=== PATIENT | female | born 1985 | race Two or more races ===

== ENCOUNTER 2017-04-11 11:08 | Emergency (ER) | payer MEDICAID ==
--- NOTE | 2017-04-11 13:09 | ED Physician Documentation ---
PD HPI URI - Stated complaint Stated Complaint: COLD SX - Chief complaint Chief Complaint: General - History obtained from History obtained from: Patient - History of Present Illness Timing - onset: How many weeks ago (over a week, with worsening cough and asthma now the past 2 days.) Timing details: Gradual onset, Still present. No: Abrupt onset Associated symptoms: Chills, Nasal congestion, Productive cough, Dyspnea. No: Hemoptysis, NVD Contributing factors: COPD / asthma, Other (lives in her car so poor air quality ). No: Sick contact, Travel, Immunocompromised Similar symptoms before: Diagnosis (bronchitis and asthma exac in the past, not recent.) Review of Systems Constitutional: reports: Chills, Myalgias. denies: Fever Nose: reports: Rhinorrhea / runny nose, Congestion Throat: denies: Sore throat Cardiac: reports: Chest pain / pressure. denies: Palpitations Respiratory: reports: Dyspnea, Cough, Wheezing GI: denies: Nausea, Vomiting, Diarrhea Skin: denies: Rash, Lesions PD PAST MEDICAL HISTORY - Past Medical History Past Medical History: Yes Respiratory: Asthma - Past Surgical History Past Surgical History: No - Present Medications Home Medications: Ambulatory Orders Medication Instructions Recorded Confirmed Albuterol Sulf [Ventolin Hfa 1 - 2 puffs INH Q4HR PRN #1 inhaler 04/11/17 Inhaler] Benzonatate [Tessalon] 100 mg PO TID PRN #25 capsule 04/11/17 Dexamethasone [Decadron] 4 mg PO DAILY #5 tablet 04/11/17 Doxycycline Monohydrate 100 mg PO BID #14 tablet 04/11/17 Mometasone Furoate [Asmanex] 1 spray IH DAILY #1 [email or web address] 04/11/17 Mupirocin 1 applic TP TID #15 oint...g. 04/11/17 - Allergies Allergies/Adverse Reactions: Allergies Allergy/AdvReac Type Severity Reaction Status Date / Time No Known Drug Allergies Allergy Verified 04/11/17 11:18 - Living Situation Living Situation: reports: Alone Living Arrangement: reports: Homeless (lives in her car) - Social History Does the pt smoke?: No Smoking Status: Never smoker Does the pt drink ETOH?: No Does the pt have substance abuse?: No - Immunizations Immunizations are current?: Yes PD ED PE NORMAL - Vitals Vital signs reviewed: Yes - General General: Alert and oriented X 3, No acute distress, Well developed/nourished - HEENT HEENT: Ears normal, Pharynx benign - Neck Neck: Supple, no meningeal sign, No adenopathy - Cardiac Cardiac: RRR, No murmur - Respiratory Respiratory: No: Clear bilaterally (no coarse sounds but with some wheezing noted scattered. She declines neb treatment here. ) - Abdomen Abdomen: Soft, Non tender - Derm Derm: Normal color, Warm and dry - Extremities Extremities: Other (left hand with small 2 cm lac just full thickness, with small scabbing, no redness nor drainage. ) Results - Vitals Vitals: Oxygen O2 Source Room air PD MEDICAL DECISION MAKING - ED course Complexity details: considered differential (main issue is URI symptoms and asthma. Secondary has small hand lac that she asks to have cleaned and dressed. It does not appear infected. Has had extended URI symptoms with now purulent cough and history of asthma, so concern for bronchitis at this point.) Departure - Departure Disposition: 01 Home, Self Care Clinical Impression: Hand laceration Qualifiers: Encounter type: initial encounter Foreign body presence: without foreign body Laterality: left Qualified Code(s): S61.412A - Laceration without foreign body of left hand, initial encounter Upper respiratory infection Qualifiers: URI type: unspecified URI Qualified Code(s): J06.9 - Acute upper respiratory infection, unspecified Asthma exacerbation Qualifiers: Asthma severity: mild Asthma persistence: intermittent Qualified Code(s): J45.21 - Mild intermittent asthma with (acute) exacerbation Record reviewed to determine appropriate education?: Yes Instructions: ED Upper Resp Infec Abx Tx, ED Laceration Hand Prescriptions: Albuterol Sulf [Ventolin Hfa Inhaler] 1 - 2 puffs INH Q4HR PRN #1 inhaler PRN Reason: Shortness Of Air/Wheezing Benzonatate [Tessalon] 100 mg PO TID PRN #25 capsule PRN Reason: Cough Dexamethasone [Decadron] 4 mg PO DAILY #5 tablet Doxycycline Monohydrate 100 mg PO BID #14 tablet Mometasone Furoate [Asmanex] 1 spray IH DAILY #1 [email or web address] Mupirocin 1 applic TP TID #15 oint...g. Comments: Drink lots of fluids. Continue your albuterol inhaler 2 puffs 4 times a day for the next 7-10 days then as needed. Continue the steroid inhaler as well. Also add oral steroids daily for the next 5 days. Use Tessalon if needed for cough. This sounds like there may be some sinus infection as well as bronchial. This often is viral but given your history of asthma in the duration of the symptoms, we will treated with antibiotics as well with doxycycline twice daily for a week. Recheck if not improving over the next few days. Tylenol or ibuprofen if needed for fevers and aches. Discharge Date/Time: 04/11/17 13:46
[2017-04-11] MEDS ORDERED: DEXAMETHASONE 10 MG/ML VIAL PO STA (13:17)
[2017-04-11] MEDS ORDERED: MUPIROCIN 2% OINT 1 GM TOP STA (13:17)
[2017-04-11] MEDS ORDERED: DOXYCYCLINE 100 MG TABLET PO STA (13:17)
[2017-04-11] MEDS ORDERED: CETIRIZINE 10 MG TABLET PO STA (13:17)
[2017-04-11] MEDS ORDERED: CHERRY SYRUP 10 ML UDC PO ONE (13:29)
[2017-04-11 13:47] VITALS: BP 134/82
== END 2017-04-11 13:46 | disposition home or self-care (01) ==
LOC: ED 11:08
DX: J06.9 Acute upper respiratory infection, unspecified (principal); J45.21 Mild intermittent asthma with (acute) exacerbation; S61.412A Laceration without foreign body of left hand, initial encounter; X58.XXXA Exposure to other specified factors, initial encounter; Z59.0 Homelessness
CPT/HCPCS: 99283; A9270

== ENCOUNTER 2017-08-26 09:58 | Emergency (ER) | payer MEDICAID ==
[2017-08-26] MEDS ORDERED: oxyCODONE 5 MG TABLET PO STA (11:07)
[2017-08-26] MEDS ORDERED: LIDOCAINE 1%-EPI 1:100000 20 ML MDV SUBQ STA (11:07)
--- NOTE | 2017-08-26 11:09 | ED Physician Documentation ---
History of Present Illness - Stated complaint Stated Complaint: HOT FLASHES - Chief complaint Chief Complaint: Wound - Additonal information Additional information: hx from pt 32 f denies preg homeless meth IVDA to ER with hot flashes and numerous arm abscesses denies HIV no DM states uses her own clean needles Review of Systems Constitutional: reports: Fever : denies: Now EGA Skin: reports: Other (abscesses) PD PAST MEDICAL HISTORY - Past Medical History Respiratory: Asthma - Past Surgical History Past Surgical History: No - Present Medications Home Medications: Ambulatory Orders Medication Instructions Recorded Confirmed Albuterol Sulf [Ventolin Hfa 1 - 2 puffs INH Q4HR PRN #1 inhaler 04/11/17 Inhaler] Cephalexin [Keflex] 500 mg PO Q6H #28 capsule 08/26/17 Mometasone Furoate [Asmanex] 2 spray IH DAILY 08/26/17 08/26/17 Sulfamethox/Trimeth 800/160 1 each PO BID #14 tablet 08/26/17 [Bactrim Ds 800/160] - Allergies Allergies/Adverse Reactions: Allergies Allergy/AdvReac Type Severity Reaction Status Date / Time No Known Drug Allergies Allergy Verified 08/26/17 11:19 - Social History Does the pt smoke?: No Smoking Status: Never smoker Does the pt drink ETOH?: No Does the pt have substance abuse?: No - Immunizations Immunizations are current?: Yes PD ED PE NORMAL - Vitals Vital signs reviewed: Yes - Cardiac Cardiac: RRR, No murmur - Respiratory Respiratory: No respiratory distress - Extremities Extremities: Other (eschar L AC with large area firm hot erythematous induration to upper third of the ant later FA, MSV intact, several smaller abscesses to R AC and FA, also MSV intact) - Neuro Neuro: Alert and oriented X 3 Results - Vitals Vitals: Vital Signs - 24 hr 08/26/17 08/26/17 08/26/17 10:23 12:49 14:29 Temperature 36.8 C 36.7 C Heart Rate 94 66 68 Respiratory 18 16 18 Rate Blood Pressure 128/74 122/61 123/62 O2 Saturation 100 98 98 Oxygen O2 Source Room air - Labs Labs: Microbiology 08/26/17 13:30 Wound Culture - Preliminary Arm - Right Laboratory Tests 08/26/17 08/26/17 11:40 11:45 WBC 8.4 RBC 4.23 Hgb 12.5 Hct 37.7 MCV 89.1 MCH 29.5 MCHC 33.1 RDW 14.8 Plt Count 311 MPV 7.7 L Neut # (Auto) 5.4 Lymph # (Auto) 2.0 Harlan # (Auto) 0.8 Eos # (Auto) 0.1 Baso # (Auto) 0.1 Absolute Nucleated RBC 0.00 Nucleated RBC % 0.0 Sodium 135 Potassium 3.2 L Chloride 103 Carbon Dioxide 25 Anion Gap 7.0 BUN 8 Creatinine 0.6 Estimated GFR (MDRD) 117 Glucose 109 H Calcium 8.4 L PD MEDICAL DECISION MAKING - ED course ED course: busy ED today with numerous procedures to do - pt had been waiting patiently - abscesses drained by other EMP on duty Dr Moya under local anesthesia and oral analegesia - see his note - R arm culture taken not needing packing, L arm larger and packed - Sepsis Event Vital Signs: Vital Signs - 24 hr 08/26/17 08/26/17 08/26/17 10:23 12:49 14:29 Temperature 36.8 C 36.7 C Heart Rate 94 66 68 Respiratory 18 16 18 Rate Blood Pressure 128/74 122/61 123/62 O2 Saturation 100 98 98 Oxygen O2 Source Room air Departure - Departure Disposition: 01 Home, Self Care Clinical Impression: Abscess Condition: Good Instructions: ED Abscess IandD Follow-Up: [facility] [Provider Group] (call to establish care for future needs) Prescriptions: Cephalexin [Keflex] 500 mg PO Q6H #28 capsule Sulfamethox/Trimeth 800/160 [Bactrim Ds 800/160] 1 each PO BID #14 tablet Comments: You have numerous abscesses on both arms very likely due to your drug use Ideally stop using meth all together - we gave you a book of resources that provide assistance with drug addiction - this booklet also has information for local shelters such as the [facility] If you cannot stop using, you need new clean needles. Given the number of infected sites you have right now, you may even have a blood stream infection - we have blood cultures as well as wound cultures pending - we will call you at the number your provided when you checked in - please be certain that number is a working functional phone number is case we need to reach you with critical results I have prescribed antibiotics to cover all different kinds of possible bacteria - take as directed - and eat some yogurt every daily to prevent diarrhea from the antibiotics You need to come back to the ED Tuesday to have the packing changed and the wounds checked Return sooner if worse. Discharge Date/Time: 08/26/17 14:32
[2017-08-26] MEDS ORDERED: LIDOCAINE 1%-EPI 1:100000 30 ML MDV ONE (11:33)
[2017-08-26 12:01] LABS: BASOPHILS # (AUTO) 0.1 10^3/uL (0.0-0.1); EOSINOPHILS # (AUTO) 0.1 10^3/uL (0.0-0.7); EOSINOPHILS % (AUTO) 0.8 %; HGB - HEMOGLOBIN 12.5 g/dL (12.0-16.0); LYMPHOCYTES % (AUTO) 24.3 %; MEAN CORPUSCULAR HEMOGLOBIN 29.5 pg (27.0-31.0); MEAN CORPUSCULAR HGB CONC 33.1 g/dL (32.0-36.0); MEAN CORPUSCULAR VOLUME 89.1 fL (81.0-99.0); MEAN PLATELET VOLUME 7.7 fL (7.9-10.8); MONOCYTES # (AUTO) 0.8 10^3/uL (0.0-1.0); MONOCYTES % (AUTO) 9.3 %; NEUTROPHILS # (AUTO) 5.4 10^3/uL (1.5-6.6); NEUTROPHILS % (AUTO) 64.6 %; PLT - PLATELET COUNT 311 10^3/uL (130-450); RED BLOOD COUNT 4.23 10^6/uL (4.20-5.40); RED CELL DISTRIBUTION WIDTH 14.8 % (12.0-15.0); WHITE BLOOD COUNT 8.4 x10^3/uL (4.8-10.8)
[2017-08-26 12:07] LABS: CALCIUM 8.4 mg/dL (8.5-10.3); CREATININE 0.6 mg/dL (0.4-1.0)
[2017-08-26 14:32] VITALS: BP 123/62
--- NOTE | 2017-08-31 18:01 | ED Physician Documentation ---
ED Addendum - Addendum Addendum: 08/31/17 17:59 Dr Zamora asked me to do the I/Ds on this patient. Procedure 1: Right forearm. 2cm abcess was prepped and infiltrated with lidocaine and incised. Culture obtained. Purulent drainage sent for cx. Not packed- too small. Procedure 2: Left forearm, 3cm abcess was prepped and infiltrated with lidocaine and incised. No cx obtained. Deloculated and packed.
== END 2017-08-26 14:32 | disposition home or self-care (01) ==
LOC: ED 09:58
DX: L02.414 Cutaneous abscess of left upper limb (principal); L02.413 Cutaneous abscess of right upper limb; F15.10 Other stimulant abuse, uncomplicated; Z59.0 Homelessness
CPT/HCPCS: 36415; 80048; 85025; 87040; 87070; 87205; 99283; A9270; 10061

== ENCOUNTER 2017-08-29 13:59 | Emergency (ER) | payer MEDICAID ==
[2017-08-29] MEDS ORDERED: SULFAMETH/TRIMETH DS 800/160 MG TABLET PO STA (14:50)
[2017-08-29] MEDS ORDERED: cephALEXin 250 MG CAPSULE PO STA (14:50)
--- NOTE | 2017-08-29 15:00 | ED Physician Documentation ---
History of Present Illness - Stated complaint Stated Complaint: unable to fill meds - Chief complaint Chief Complaint: General - History obtained from History obtained from: Patient - History of Present Illness Timing: Today - Additonal information Additional information: 32-year-old female with history of IV drug abuse has had abscesses on her arm lanced 3 days ago here in the emergency department. She has been unable to fill her prescription for her antibiotics and her asthma medication and she is come to the emergency department. She has not had progression of her symptoms on her wounds. She does state that she is now homeless and when she tried to get her prescription filled she was told her insurance was not good. She is come to the emergency department today frustrated unable to get her medications. Review of Systems Constitutional: denies: Fever Eyes: denies: Decreased vision Nose: denies: Congestion Respiratory: denies: Cough GI: denies: Vomiting Skin: reports: Lesions Musculoskeletal: reports: Extremity pain. denies: Neck pain, Back pain Neurologic: denies: Generalized weakness, Focal weakness, Numbness PD PAST MEDICAL HISTORY - Past Medical History Past Medical History: Yes Respiratory: Asthma - Past Surgical History Past Surgical History: No - Present Medications Home Medications: Ambulatory Orders Medication Instructions Recorded Confirmed Albuterol Sulf [Ventolin Hfa 1 - 2 puffs INH Q4HR PRN #1 inhaler 04/11/17 Inhaler] Cephalexin [Keflex] 500 mg PO Q6H #28 capsule 08/26/17 Mometasone Furoate [Asmanex] 2 spray IH DAILY 08/26/17 08/26/17 Sulfamethox/Trimeth 800/160 1 each PO BID #14 tablet 08/26/17 [Bactrim Ds 800/160] Albuterol Sulf [Ventolin Hfa 1 - 2 puffs INH Q4HR PRN #1 inhaler 08/29/17 Inhaler] Cephalexin [Keflex] 500 mg PO Q6HR #28 capsule 08/29/17 Sulfamethoxazole/Trimethoprim 1 each PO BID #14 tablet 08/29/17 [Sulfamethoxazole-Tmp Ds Tablet] - Allergies Allergies/Adverse Reactions: Allergies Allergy/AdvReac Type Severity Reaction Status Date / Time No Known Drug Allergies Allergy Verified 08/29/17 14:06 - Social History Does the pt smoke?: No Smoking Status: Never smoker Does the pt drink ETOH?: No Does the pt have substance abuse?: No - Immunizations Immunizations are current?: Yes PD ED PE NORMAL - Vitals Vital signs reviewed: Yes (hypertensive ) - General General: Alert and oriented X 3, No acute distress, Well developed/nourished - HEENT HEENT: Atraumatic, PERRL, EOMI - Respiratory Respiratory: No respiratory distress - Derm Derm: Normal color, Warm and dry, No rash - Extremities Extremities: No deformity, No edema, Other (over the antecubita on the left is a wound that is draining pus through a 3mm hole and there is no significant surounding erythema. There is a second area that has been lanced and has no current drainage but does have firm mass that is tender. This is on the forearm on the left. There are 2 other areas on the right forearm that appear to be healing without current signs of infection ) - Neuro Neuro: No motor deficit, No sensory deficit Eye Opening: Spontaneous Motor: Obeys Commands Verbal: Oriented GCS Score: 15 - Psych Psych: Normal mood, Normal affect Results - Vitals Vitals: Vital Signs - 24 hr 08/29/17 08/29/17 14:02 16:04 Temperature 36.5 C 36.6 C Heart Rate 87 97 Respiratory 18 16 Rate Blood Pressure 150/83 H 142/85 H O2 Saturation 100 99 Oxygen O2 Source Room air PD MEDICAL DECISION MAKING - ED course Complexity details: reviewed results, re-evaluated patient, considered differential, d/w patient, d/w family ED course: 32 y/o female with abcesses to the arms is not able to procure her antibiotic script. administrative services officer are consulted for help. - Sepsis Event Vital Signs: Vital Signs - 24 hr 08/29/17 08/29/17 14:02 16:04 Temperature 36.5 C 36.6 C Heart Rate 87 97 Respiratory 18 16 Rate Blood Pressure 150/83 H 142/85 H O2 Saturation 100 99 Oxygen O2 Source Room air Departure - Departure Disposition: 01 Home, Self Care Clinical Impression: Abscess Condition: Stable Instructions: ED Staph Infec Abx Tx Only Follow-Up: [facility] [Provider Group] Prescriptions: Albuterol Sulf [Ventolin Hfa Inhaler] 1 - 2 puffs INH Q4HR PRN #1 inhaler PRN Reason: Shortness Of Air/Wheezing Cephalexin [Keflex] 500 mg PO Q6HR #28 capsule Sulfamethoxazole/Trimethoprim [Sulfamethoxazole-Tmp Ds Tablet] 1 each PO BID # 14 tablet Comments: Fill the scripts for the antibiotics and the inhaler and follow up with Luis Hood as needed.
[2017-08-29 16:06] VITALS: BP 142/85
== END 2017-08-29 16:13 | disposition home or self-care (01) ==
LOC: ED 13:59
DX: L02.414 Cutaneous abscess of left upper limb (principal); J45.909 Unspecified asthma, uncomplicated
CPT/HCPCS: 99283; A9270

== ENCOUNTER 2017-10-17 12:16 | Emergency (ER) | payer MEDICAID ==
[2017-10-17 12:27] VITALS: BP 109/62
--- NOTE | 2017-10-17 14:55 | ED Physician Documentation ---
History of Present Illness - Stated complaint Stated Complaint: R ARM PX - Chief complaint Chief Complaint: General - History obtained from History obtained from: Patient - History of Present Illness Timing: How many days ago (3) Pain level max: 8 Pain level now: 8 Quality: aching, pain Improved by: rest Worsened by: movement, palpation - Additonal information Additional information: States that she was injecting meth in her R AC 2-3 days ago and states now has redness, swelling and pain to the area. States this has happened before. No fevers. No vomiting. No back pain. no headache. not . Review of Systems Constitutional: denies: Fever, Chills Respiratory: denies: Cough GI: denies: Nausea, Vomiting, Diarrhea Skin: denies: Rash Musculoskeletal: denies: Neck pain, Back pain Neurologic: denies: Headache PD PAST MEDICAL HISTORY - Past Medical History Past Medical History: Yes Respiratory: Asthma - Past Surgical History Past Surgical History: No - Present Medications Home Medications: Ambulatory Orders Medication Instructions Recorded Confirmed Mometasone Furoate [Asmanex] 2 spray IH DAILY 08/26/17 08/26/17 Albuterol Sulf [Ventolin Hfa 1 - 2 puffs INH Q4HR PRN #1 inhaler 08/29/17 Inhaler] Cephalexin [Keflex] 500 mg PO Q6HR #28 capsule 08/29/17 Cephalexin [Keflex] 500 mg PO Q6H #28 capsule 10/17/17 Sulfamethox/Trimeth 800/160 1 each PO BID #14 tablet 10/17/17 [Bactrim Ds 800/160] - Allergies Allergies/Adverse Reactions: Allergies Allergy/AdvReac Type Severity Reaction Status Date / Time No Known Drug Allergies Allergy Verified 10/17/17 12:26 - Social History Does the pt smoke?: No Smoking Status: Never smoker Does the pt drink ETOH?: No Does the pt have substance abuse?: No - Immunizations Immunizations are current?: Yes PD ED PE NORMAL - Vitals Vital signs reviewed: Yes - General General: Alert and oriented X 3, No acute distress - HEENT HEENT: Moist mucous membranes - Neck Neck: Supple, no meningeal sign - Cardiac Cardiac: RRR - Respiratory Respiratory: No respiratory distress, Clear bilaterally - Derm Derm: Warm and dry - Extremities Extremities: Other (R arm - Mild swelling and erythema to the anterior right AC. No fluctuance. No drainage. Neurovascularly intact. Otherwise normal exam. Bedside ultrasound reveals no drainable abscess at this time) - Neuro Neuro: Alert and oriented X 3 - Psych Psych: Normal mood, Normal affect Results - Vitals Vitals: Vital Signs - 24 hr 10/17/17 12:22 Temperature 36.8 C Heart Rate 86 Respiratory 18 Rate Blood Pressure 109/62 O2 Saturation 99 Oxygen O2 Source Room air PD MEDICAL DECISION MAKING - ED course Complexity details: considered differential, d/w patient ED course: Patient is a 32-year-old female with what appears to be cellulitis of the right AC fossa after injecting methamphetamine. No drainable abscess on ultrasound. No fluctuance clinically. Will place on antibiotics and follow-up closely with her doctor. Was given Rocephin and Bactrim here. Patient counseled regarding signs and symptoms for which I believe and urgent re-evaluation would be necessary. Patient with good understanding of and agreement to plan and is comfortable going home at this time This document was made in part using voice recognition software. While efforts are made to proofread this document, sound alike and grammatical errors may occur. - Sepsis Event Vital Signs: Vital Signs - 24 hr 10/17/17 12:22 Temperature 36.8 C Heart Rate 86 Respiratory 18 Rate Blood Pressure 109/62 O2 Saturation 99 Oxygen O2 Source Room air Departure - Departure Disposition: 01 Home, Self Care Clinical Impression: Cellulitis Qualifiers: Site of cellulitis: extremity Site of cellulitis of extremity: upper extremity Laterality: right Qualified Code(s): L03.113 - Cellulitis of right upper limb Condition: Good Instructions: ED Infec Skin Cellulitis Follow-Up: your,doctor in 3 days for wound check [Other] Prescriptions: Cephalexin [Keflex] 500 mg PO Q6H #28 capsule Sulfamethox/Trimeth 800/160 [Bactrim Ds 800/160] 1 each PO BID #14 tablet Comments: Take all antibiotics until gone. Return if you worsen. Follow-up with your doctor in 3 days for a wound check. Return especially for increasing redness, swelling or fevers. Discharge Date/Time: 10/17/17 15:52
[2017-10-17] MEDS ORDERED: LIDOCAINE 1% 2 ML VIAL SUBQ ONE (15:39)
[2017-10-17] MEDS ORDERED: SULFAMETH/TRIMETH DS 800/160 MG TABLET PO STA (15:39)
[2017-10-17] MEDS ORDERED: cefTRIAXone 1 GM VIAL IM STA (15:39)
== END 2017-10-17 15:52 | disposition home or self-care (01) ==
LOC: ED 12:16
DX: L03.113 Cellulitis of right upper limb (principal)
CPT/HCPCS: 96372; 99283; A9270

== ENCOUNTER 2017-12-29 15:28 | Emergency (ER) | payer MEDICAID ==
[2017-12-29] MEDS ORDERED: HALOPERIDOL 5 MG/ML VIAL IVP STA (16:09)
[2017-12-29] MEDS ORDERED: IPRATROPIUM/ALBUTEROL 3 ML NEB INH STA (16:10)
--- NOTE | 2017-12-29 16:14 | ED Physician Documentation ---
History of Present Illness - Stated complaint Stated Complaint: FEVER/SOA/ABD PX - Chief complaint Chief Complaint: Abd Pain - History obtained from History obtained from: Patient - History of Present Illness Timing: Chronic Pain level max: 7 Pain level now: 7 Improved by: nothing Worsened by: nothing - Additonal information Additional information: Patient is a 32-year-old female who presents to the emergency department with abdominal pain. She states this is been ongoing for many years. Has been constant and is present every day all day long. She states that she has had multiple endoscopies, colonoscopies, CT scans and ultrasounds without any abnormalities found. She states that nobody knows what is wrong with her abdominal pain. She states it is getting worse. She uses marijuana multiple times daily and states that it makes her feel "sick". However she does continue her daily use. She also states that she has not been drinking much water lately and feels dehydrated. Is also out of her inhalers. Review of Systems Constitutional: denies: Fever, Chills Ears: denies: Ear pain Nose: denies: Rhinorrhea / runny nose, Congestion Throat: denies: Sore throat Cardiac: denies: Chest pain / pressure Respiratory: denies: Cough, Wheezing GI: reports: Abdominal Pain. denies: Nausea, Vomiting, Diarrhea, Hematemesis, Bloody / black stool : denies: Dysuria, Now EGA Skin: denies: Rash Musculoskeletal: denies: Neck pain, Back pain Neurologic: denies: Headache PD PAST MEDICAL HISTORY - Past Medical History Respiratory: Asthma - Past Surgical History Past Surgical History: Yes General: Cholecystectomy - Present Medications Home Medications: Ambulatory Orders Medication Instructions Recorded Confirmed Albuterol Sulf [Ventolin Hfa 1 - 2 puffs INH Q4HR PRN #1 inhaler 08/29/17 Inhaler] Albuterol Sulf [Ventolin Hfa 1 - 2 puffs INH Q4HR PRN #1 inhaler 12/29/17 Inhaler] Mometasone Furoate [Asmanex] 2 spray IH DAILY #1 aer.[email or web address] 12/29/17 - Allergies Allergies/Adverse Reactions: Allergies Allergy/AdvReac Type Severity Reaction Status Date / Time No Known Drug Allergies Allergy Verified 12/29/17 15:36 - Social History Does the pt smoke?: No Smoking Status: Never smoker Does the pt drink ETOH?: No Does the pt have substance abuse?: No - Immunizations Immunizations are current?: Yes - POLST Patient has POLST: No PD ED PE NORMAL - Vitals Vital signs reviewed: Yes - General General: Alert and oriented X 3, No acute distress - HEENT HEENT: Moist mucous membranes - Neck Neck: Supple, no meningeal sign - Cardiac Cardiac: RRR, Strong equal pulses - Respiratory Respiratory: No respiratory distress, Clear bilaterally - Abdomen Abdomen: Soft, Non tender, Non distended - Back Back: No spinal TTP - Derm Derm: Warm and dry - Neuro Neuro: Alert and oriented X 3 - Psych Psych: Normal mood, Normal affect Results - Vitals Vitals: Vital Signs - 24 hr 12/29/17 12/29/17 12/29/17 15:34 16:19 17:28 Temperature 36.5 C 36.6 C Heart Rate 116 H 106 H 75 Respiratory 20 20 20 Rate Blood Pressure 143/93 H 123/57 L O2 Saturation 99 99 Oxygen O2 Source Room air - Labs Labs: Laboratory Tests 12/29/17 12/29/17 16:44 16:44 WBC 8.1 RBC 4.42 Hgb 13.5 Hct 38.7 MCV 87.4 MCH 30.6 MCHC 35.0 RDW 14.6 Plt Count 309 MPV 7.0 L Neut # (Auto) 5.0 Lymph # (Auto) 2.6 Park # (Auto) 0.4 Eos # (Auto) 0.1 Baso # (Auto) 0.0 Absolute Nucleated RBC 0.01 Nucleated RBC % 0.1 Sodium 136 Potassium 3.4 L Chloride 105 Carbon Dioxide 23 Anion Gap 8.0 BUN 13 Creatinine 0.6 Estimated GFR (MDRD) 117 Glucose 143 H Calcium 8.8 Total Bilirubin 0.5 AST 20 ALT 40 Alkaline Phosphatase 51 Total Protein 7.5 Albumin 3.8 Globulin 3.7 Albumin/Globulin Ratio 1.0 Lipase 25 PD MEDICAL DECISION MAKING - ED course Complexity details: reviewed results, re-evaluated patient, considered differential, d/w patient ED course: Patient is a 32-year-old female with chronic abdominal pain. She does feel better after Haldol, possibly related to her marijuana use? Recommend that she stop this. She is well-appearing, nontoxic. Afebrile. Tolerating p.o. without difficulty. We will also refill her asthma medications. We will have her follow-up with her doctor for further care. Patient counseled regarding signs and symptoms for which I believe and urgent re-evaluation would be necessary. Patient with good understanding of and agreement to plan and is comfortable going home at this time This document was made in part using voice recognition software. While efforts are made to proofread this document, sound alike and grammatical errors may occur. Departure - Departure Disposition: Home, Self Care Clinical Impression: Abdominal pain Qualifiers: Abdominal location: generalized Qualified Code(s): R10.84 - Generalized abdominal pain Condition: Good Instructions: ED Abdominal Pain Unkn Cause Follow-Up: your,doctor in 1 week [Other] Prescriptions: Albuterol Sulf [Ventolin Hfa Inhaler] 1 - 2 puffs INH Q4HR PRN #1 inhaler PRN Reason: Shortness Of Air/Wheezing Mometasone Furoate [Asmanex] 2 spray IH DAILY #1 aer.[email or web address] Comments: Use your asthma medications as prescribed. Return if you worsen. Abdominal pain may be related to your marijuana use and you should stop using marijuana and see if this improves. Discharge Date/Time: 12/29/17 17:29
[2017-12-29 16:49] LABS: BASOPHILS % (AUTO) 0.4 %; EOSINOPHILS # (AUTO) 0.1 10^3/uL (0.0-0.7); EOSINOPHILS % (AUTO) 1.1 %; HGB - HEMOGLOBIN 13.5 g/dL (12.0-16.0); LYMPHOCYTES # (AUTO) 2.6 10^3/uL (1.5-3.5); LYMPHOCYTES % (AUTO) 32.8 %; MEAN CORPUSCULAR HEMOGLOBIN 30.6 pg (27.0-31.0); MEAN CORPUSCULAR VOLUME 87.4 fL (81.0-99.0); MONOCYTES # (AUTO) 0.4 10^3/uL (0.0-1.0); MONOCYTES % (AUTO) 4.4 %; NEUTROPHILS % (AUTO) 61.3 %; PLT - PLATELET COUNT 309 10^3/uL (130-450); RED BLOOD COUNT 4.42 10^6/uL (4.20-5.40); RED CELL DISTRIBUTION WIDTH 14.6 % (12.0-15.0); WHITE BLOOD COUNT 8.1 x10^3/uL (4.8-10.8)
[2017-12-29 17:02] LABS: ALBUMIN 3.8 g/dL (3.2-5.5); BILIRUBIN,TOTAL 0.5 mg/dL (0.2-1.0); CALCIUM 8.8 mg/dL (8.5-10.3); CREATININE 0.6 mg/dL (0.4-1.0); TOTAL PROTEIN 7.5 g/dL (6.7-8.2)
[2017-12-29 17:29] VITALS: BP 123/57
== END 2017-12-29 17:29 | disposition home or self-care (01) ==
LOC: ED 15:28
DX: R10.84 Generalized abdominal pain (principal); J45.909 Unspecified asthma, uncomplicated
CPT/HCPCS: 36415; 80053; 83690; 85025; 94640; 96374; 99283

== ENCOUNTER 2018-02-22 10:19 | Outpatient (CLI) | payer MEDICAID | END 2018-02-22 10:20 | disposition critical access hospital (66) | LOC: EMS 10:19 | PROVIDERS: ATTEND Surgery | DX: M54.5 Low back pain (principal); V13.4XXA Pedal cycle driver injured in collision with car, pick-up truck or van in traffic accident, initial encounter; Y93.55 Activity, bike riding; Y92.413 State road as the place of occurrence of the external cause | CPT/HCPCS: A0425; A0429; A0999 ==

== ENCOUNTER 2018-02-22 10:42 | Emergency (ER) | payer MEDICAID, OTHER ==
[2018-02-22] MEDS: IOVERSOL 320 100 ML VIAL IVP ONE (11:05)
[2018-02-22] MEDS: KETOROLAC 60 MG/2 ML VIAL IVP STA (11:39)
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
[2018-02-22] MEDS: HYDROmorphone 1 MG/ML CARPUJECT IVP STA (13:03)
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
[2018-02-22 17:08] VITALS: BP 143/83
== END 2018-02-22 15:55 | disposition home or self-care (01) ==
LOC: ED 10:42
DX: M79.10 Myalgia, unspecified site (principal); T14.8XXA Other injury of unspecified body region, initial encounter; V19.00XA Pedal cycle driver injured in collision with unspecified motor vehicles in nontraffic accident, initial encounter; F17.200 Nicotine dependence, unspecified, uncomplicated
CPT/HCPCS: 70450; 71260; 72125; 74177; 96374; 96375; 99283; 99285

== ENCOUNTER 2018-07-11 08:00 | Outpatient (CLI) | payer MEDICAID ==
[2018-07-11 18:29] LABS: BILIRUBIN,URINE NEGATIVE (NEGATIVE); GLUCOSE, URINE (UA) NEGATIVE (NEGATIVE); KETONES,URINE (UA) NEGATIVE (NEGATIVE); LEUKOCYTE ESTERASE, URINE NEGATIVE (NEGATIVE); NITRITE,URINE POSITIVE (NEGATIVE); OCCULT BLOOD,URINE NEGATIVE (NEGATIVE); PROTEIN,URINE NEGATIVE (NEGATIVE); UROBILINOGEN,URINE 0.2 (NORMAL) E.U./dL (NORMAL)
[2018-07-11 18:30] LABS: CLARITY,URINE HAZY (CLEAR)
[2018-07-11 18:44] LABS: BACTERIA,URINE Many /HPF (None Seen); RBC,URINE None Seen /HPF (0-5); SQUAMOUS EPITHELIAL CELL,UR MOD Squamous (<= Few)
== END 2018-07-11 23:59 | disposition home or self-care (01) ==
LOC: LAB.R 08:00
PROVIDERS: ATTEND Physician Assistant Medical
DX: R82.90 Unspecified abnormal findings in urine (principal)
CPT/HCPCS: 36415; 80053; 81001; 81003; 83036; 84443; 85025; 87086

== ENCOUNTER 2018-07-12 15:08 | Outpatient (CLI) | payer MEDICAID ==
[2018-07-12 18:54] LABS: BASOPHILS % (AUTO) 0.5 %; EOSINOPHILS # (AUTO) 0.1 10^3/uL (0.0-0.7); EOSINOPHILS % (AUTO) 1.6 %; HGB - HEMOGLOBIN 12.6 g/dL (12.0-16.0); LYMPHOCYTES # (AUTO) 2.3 10^3/uL (1.5-3.5); LYMPHOCYTES % (AUTO) 28.1 %; MEAN CORPUSCULAR HEMOGLOBIN 29.8 pg (27.0-31.0); MEAN CORPUSCULAR HGB CONC 33.3 g/dL (32.0-36.0); MEAN CORPUSCULAR VOLUME 89.4 fL (81.0-99.0); MEAN PLATELET VOLUME 7.9 fL (7.9-10.8); MONOCYTES # (AUTO) 0.6 10^3/uL (0.0-1.0); MONOCYTES % (AUTO) 6.7 %; NEUTROPHILS # (AUTO) 5.3 10^3/uL (1.5-6.6); NEUTROPHILS % (AUTO) 63.1 %; PLT - PLATELET COUNT 347 10^3/uL (130-450); RED BLOOD COUNT 4.22 10^6/uL (4.20-5.40); RED CELL DISTRIBUTION WIDTH 14.2 % (12.0-15.0); WHITE BLOOD COUNT 8.3 x10^3/uL (4.8-10.8)
[2018-07-12 19:11] LABS: ALBUMIN 3.3 g/dL (3.2-5.5); BILIRUBIN,TOTAL 0.5 mg/dL (0.2-1.0); CALCIUM 8.5 mg/dL (8.5-10.3); CREATININE 0.5 mg/dL (0.4-1.0); TOTAL PROTEIN 6.5 g/dL (6.7-8.2)
[2018-07-12 19:14] LABS: HB2 TOTAL 12.5 g/dL; HEMOGLOBIN A1C 0.47 g/dL; HEMOGLOBIN A1C % 5.6 % (4.6-6.2)
== END 2018-07-12 15:09 | disposition home or self-care (01) ==
LOC: LAB.WCP 15:08
PROVIDERS: ATTEND Physician Assistant Medical
DX: Z33.3 Pregnant state, gestational carrier (principal); O24.419 Gestational diabetes mellitus in pregnancy, unspecified control
CPT/HCPCS: 36415; 80053; 83036; 84443; 85025

== ENCOUNTER 2018-07-19 12:57 | Emergency (ER) | payer MEDICAID ==
[2018-07-19 13:37] LABS: BASOPHILS # (AUTO) 0.1 10^3/uL (0.0-0.1); BASOPHILS % (AUTO) 0.8 %; EOSINOPHILS # (AUTO) 0.2 10^3/uL (0.0-0.7); HGB - HEMOGLOBIN 12.1 g/dL (12.0-16.0); LYMPHOCYTES # (AUTO) 2.2 10^3/uL (1.5-3.5); LYMPHOCYTES % (AUTO) 29.6 %; MEAN CORPUSCULAR HEMOGLOBIN 29.7 pg (27.0-31.0); MEAN CORPUSCULAR HGB CONC 33.4 g/dL (32.0-36.0); MEAN CORPUSCULAR VOLUME 88.9 fL (81.0-99.0); MEAN PLATELET VOLUME 7.2 fL (7.9-10.8); MONOCYTES # (AUTO) 0.6 10^3/uL (0.0-1.0); MONOCYTES % (AUTO) 7.4 %; NEUTROPHILS # (AUTO) 4.6 10^3/uL (1.5-6.6); NEUTROPHILS % (AUTO) 60.2 %; PLT - PLATELET COUNT 337 10^3/uL (130-450); RED BLOOD COUNT 4.07 10^6/uL (4.20-5.40); RED CELL DISTRIBUTION WIDTH 14.7 % (12.0-15.0); WHITE BLOOD COUNT 7.6 x10^3/uL (4.8-10.8)
[2018-07-19 13:39] LABS: BILIRUBIN,URINE NEGATIVE (NEGATIVE); GLUCOSE, URINE (UA) NEGATIVE (NEGATIVE); KETONES,URINE (UA) NEGATIVE (NEGATIVE); LEUKOCYTE ESTERASE, URINE TRACE (NEGATIVE); NITRITE,URINE NEGATIVE (NEGATIVE); OCCULT BLOOD,URINE LARGE (NEGATIVE); PROTEIN,URINE 30 mg/dL (NEGATIVE); UROBILINOGEN,URINE 0.2 (NORMAL) E.U./dL (NORMAL)
[2018-07-19 13:41] LABS: CLARITY,URINE CLOUDY (CLEAR)
[2018-07-19 13:46] LABS: BACTERIA,URINE Few /HPF (None Seen); RBC,URINE TNTC /HPF (0-5); SQUAMOUS EPITHELIAL CELL,UR MOD Squamous (<= Few)
[2018-07-19 13:56] LABS: ALBUMIN 3.3 g/dL (3.2-5.5); BILIRUBIN,TOTAL 0.6 mg/dL (0.2-1.0); CALCIUM 8.6 mg/dL (8.5-10.3); CREATININE 0.5 mg/dL (0.4-1.0); TOTAL PROTEIN 6.7 g/dL (6.7-8.2)
--- NOTE | 2018-07-19 14:41 | ED Physician Documentation ---
PD HPI FEMALE - Stated complaint Stated Complaint: BLEEDING/7WKS - Chief complaint Chief Complaint: Abd Pain - History obtained from History obtained from: Patient - History of Present Illness Timing - onset: Yesterday Timing - duration: Days (1) Timing - details: Gradual onset Pain level max: 3 Pain level max: 3 Associated symptoms: Vaginal bleeding (clots). No: Fever Contributing factors: (7 weeks EGA) OB-RN NEONATAL History: G (3), P (2) Similar symptoms before: Has not had sx before Recently seen: Not recently seen Review of Systems Constitutional: denies: Fever, Chills Cardiac: denies: Chest pain / pressure Respiratory: denies: Cough GI: denies: Abdominal Pain, Nausea, Vomiting, Diarrhea : denies: Dysuria, Frequency, Hesitancy Skin: denies: Rash Musculoskeletal: denies: Neck pain, Back pain Neurologic: denies: Headache PD PAST MEDICAL HISTORY - Past Medical History Respiratory: Asthma - Past Surgical History Past Surgical History: Yes General: Cholecystectomy /RN NEONATAL: section - Present Medications Home Medications: Ambulatory Orders Medication Instructions Recorded Confirmed Albuterol Sulf [Ventolin Hfa 1 - 2 puffs INH Q4HR PRN #1 inhaler 08/29/17 Inhaler] Cyclobenzaprine [Flexeril] 10 mg PO TID PRN #20 tablet 02/22/18 Ibuprofen [Motrin] 800 mg PO Q8H PRN #30 tablet 02/22/18 - Allergies Allergies/Adverse Reactions: Allergies Allergy/AdvReac Type Severity Reaction Status Date / Time No Known Drug Allergies Allergy Verified 07/19/18 13:06 - Social History Does the pt smoke?: No Smoking Status: Current every day smoker Does the pt drink ETOH?: No Does the pt have substance abuse?: No - Immunizations Immunizations are current?: Yes - POLST Patient has POLST: No PD ED PE NORMAL - Vitals Vital signs reviewed: Yes - General General: Alert and oriented X 3, No acute distress, Well developed/nourished - HEENT HEENT: Moist mucous membranes - Neck Neck: Supple, no meningeal sign - Cardiac Cardiac: RRR - Respiratory Respiratory: No respiratory distress, Clear bilaterally - Abdomen Abdomen: Soft, Non tender, Non distended - Female Female : Pt declined - Derm Derm: Warm and dry - Extremities Extremities: No edema - Neuro Neuro: Alert and oriented X 3 - Psych Psych: Normal mood, Normal affect Results - Vitals Vitals: Vital Signs - 24 hr 07/19/18 07/19/18 07/19/18 13:03 14:53 15:22 Temperature 36.9 C Heart Rate 83 78 Respiratory 17 18 18 Rate Blood Pressure 169/138 H 128/85 H O2 Saturation 100 98 Oxygen O2 Source Room air - Labs Labs: Laboratory Tests 07/19/18 07/19/18 07/19/18 13:16 13:19 13:25 WBC 7.6 RBC 4.07 L Hgb 12.1 Hct 36.1 L MCV 88.9 MCH 29.7 MCHC 33.4 RDW 14.7 Plt Count 337 MPV 7.2 L Neut # (Auto) 4.6 Lymph # (Auto) 2.2 [place] # (Auto) 0.6 Eos # (Auto) 0.2 Baso # (Auto) 0.1 Absolute Nucleated RBC 0.00 Nucleated RBC % 0.0 Sodium Potassium Chloride Carbon Dioxide Anion Gap BUN Creatinine Estimated GFR (MDRD) Glucose Calcium Total Bilirubin AST ALT Alkaline Phosphatase Total Protein Albumin Globulin Albumin/Globulin Ratio Lipase HCG, Quant 9974.00 Urine Color LT RED Urine Clarity CLOUDY Urine pH 6.0 Ur Specific [place] 1.025 Urine Protein 30 H Urine Glucose (UA) NEGATIVE Urine Ketones NEGATIVE Urine Occult Blood LARGE H Urine Nitrite NEGATIVE Urine Bilirubin NEGATIVE Urine Urobilinogen 0.2 (NORMAL) Ur Leukocyte Esterase TRACE H Urine RBC TNTC H Urine WBC 4-5 Ur Squamous Epith Cells MOD Squamous H Urine Bacteria Few Ur Microscopic Review INDICATED Urine Culture Comments NOT INDICATED Blood Type 07/19/18 07/19/18 13:25 13:25 WBC RBC Hgb Hct MCV MCH MCHC RDW Plt Count MPV Neut # (Auto) Lymph # (Auto) [place] # (Auto) Eos # (Auto) Baso # (Auto) Absolute Nucleated RBC Nucleated RBC % Sodium 135 Potassium 3.7 Chloride 102 Carbon Dioxide 21 Anion Gap 12.0 BUN 10 Creatinine 0.5 Estimated GFR (MDRD) 145 Glucose 107 H Calcium 8.6 Total Bilirubin 0.6 AST 124 H ALT 278 H Alkaline Phosphatase 57 Total Protein 6.7 Albumin 3.3 Globulin 3.4 Albumin/Globulin Ratio 1.0 Lipase 23 HCG, Quant Urine Color Urine Clarity Urine pH Ur Specific [place] Urine Protein Urine Glucose (UA) Urine Ketones Urine Occult Blood Urine Nitrite Urine Bilirubin Urine Urobilinogen Ur Leukocyte Esterase Urine RBC Urine WBC Ur Squamous Epith Cells Urine Bacteria Ur Microscopic Review Urine Culture Comments Blood Type O POSITIVE - Rads (name of study) OB US Radiology: Prelim report reviewed, EMP read contemporaneously, See rad report (There is an irregular intrauterine gestational sac. There is a 0.5 cm linear echogenic focus within the gestational sac which could represent abnormal embryo. No heart tones are seen. Collective findings are suspicious for demise. No suspicious adnexal masses are seen. ) PD MEDICAL DECISION MAKING - ED course Complexity details: reviewed results, re-evaluated patient, considered differential, d/w patient, d/w family ED course: 32-year-old female with suspected intrauterine demise. We will have her follow-up with her doctor for a quantitative hCG in 3 days. She is 3 para 2. Having very little bleeding in the emergency department. Patient counseled regarding signs and symptoms for which I believe and urgent re- evaluation would be necessary. Patient with good understanding of and agreement to plan and is comfortable going home at this time This document was made in part using voice recognition software. While efforts are made to proofread this document, sound alike and grammatical errors may occur. Departure - Departure Disposition: 01 Home, Self Care Clinical Impression: Threatened affecting intrauterine Condition: Stable Instructions: ED Miscarriage Poss Follow-Up: your,doctor in 3 days for a repeat HCG. [Other] [facility] [Provider Group] Comments: You need to follow-up with your doctor in 3 days for a repeat hCG. Your ultrasound is suspicious for a miscarriage. Your hCG is 10,000 today. This needs to be repeated in 3 days to see if this is going up or down. Return if you experience heavier bleeding, chest pain or lightheadedness. Discharge Date/Time: 07/19/18 15:22
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
[2018-07-19 15:22] VITALS: BP 128/85
== END 2018-07-19 15:22 | disposition home or self-care (01) ==
LOC: ED 12:57
DX: O20.0 Threatened abortion (principal); Z3A.00 Weeks of gestation of pregnancy not specified; F17.200 Nicotine dependence, unspecified, uncomplicated
CPT/HCPCS: 36415; 76801; 76817; 80053; 81001; 81003; 83690; 84702; 85025; 86900; 86901; 87086; 99283; 99284

== ENCOUNTER 2018-07-21 15:30 | Outpatient (CLI) | payer MEDICAID | END 2018-07-21 15:31 | disposition home or self-care (01) | LOC: LAB 15:30 | PROVIDERS: ATTEND Obstetrics & Gynecology | DX: O03.9 Complete or unspecified spontaneous abortion without complication (principal) | CPT/HCPCS: 36415; 84702 ==

== ENCOUNTER 2018-07-22 16:58 | Outpatient (CLI) | payer MEDICAID | END 2018-07-22 16:59 | disposition critical access hospital (66) | LOC: EMS 16:58 | PROVIDERS: ATTEND Surgery | DX: O03.9 Complete or unspecified spontaneous abortion without complication (principal) ==

== ENCOUNTER 2018-07-22 17:19 | Day surgery (SDC) | payer MEDICAID ==
[2018-07-22] MEDS ORDERED: HYDROmorphone 1 MG/ML CARPUJECT IVP STA (17:33)
[2018-07-22] MEDS ORDERED: SODIUM CHLORIDE 0.9% 1,000 ML IV ONE ×3 (17:33→20:22)
[2018-07-22] MEDS ORDERED: KETOROLAC 30 MG/ML VIAL IVP STA (17:33)
--- NOTE | 2018-07-22 17:33 | ED Physician Documentation ---
History of Present Illness - Stated complaint Stated Complaint: FEM - Chief complaint Chief Complaint: Abd Pain - History obtained from History obtained from: Patient, EMS - History of Present Illness Timing: Today Pain level max: 8 Pain level now: 8 Improved by: nothing Worsened by: everything - Additonal information Additional information: 32-year-old female states that she had an intrauterine demise 3 days ago. Given misopristol, 600 mcg. Took it this morning and now has abdominal cramping and vaginal bleeding. States the bleeding is heavy enough that it prevents her from getting out of the shower because she is bleeding heavily. No fevers. She received fentanyl and Zofran with EMS. 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 - Present Medications Home Medications: Ambulatory Orders Medication Instructions Recorded Confirmed No Known Home Medications 07/22/18 07/22/18 miSOPROStol [Misoprostol] 100 mcg PO 07/22/18 - Allergies Allergies/Adverse Reactions: Allergies Allergy/AdvReac Type Severity Reaction Status Date / Time No Known Drug Allergies Allergy Verified 07/22/18 17:30 - Social History Does the pt smoke?: No Smoking Status: Current every day smoker Does the pt drink ETOH?: No Does the pt have substance abuse?: No - Immunizations Immunizations are current?: Yes - POLST Patient has POLST: No PD ED PE NORMAL - Vitals Vital signs reviewed: Yes - General General: Alert and oriented X 3, No acute distress, Well developed/nourished - HEENT HEENT: Moist mucous membranes - Neck Neck: Supple, no meningeal sign - Cardiac Cardiac: RRR - Respiratory Respiratory: No respiratory distress, Clear bilaterally - Abdomen Abdomen: Normal bowel sounds, Soft, Non distended, Other (TTP suprapubic) - Female Female : Entry Rep present (Tuyet HOGAN), Other (clots removed from vagina. Brisk dark blood from cervical os.) - Derm Derm: Warm and dry - Extremities Extremities: No edema - Neuro Neuro: Alert and oriented X 3 - Psych Psych: Normal mood, Normal affect Results - Vitals Vitals: Vital Signs - 24 hr 07/22/18 07/22/18 07/22/18 17:23 19:30 20:22 Temperature 36.3 C L Heart Rate 90 61 47 L Respiratory 12 8 L Rate Blood Pressure 141/97 H 119/61 74/48 L O2 Saturation 95 98 98 07/22/18 07/22/18 07/22/18 21:19 21:58 22:15 Temperature 36.7 C Heart Rate 82 70 73 Respiratory 18 20 19 Rate Blood Pressure 108/67 95/52 L 98/56 L O2 Saturation 100 96 99 Oxygen O2 Source Room air - Labs Labs: Laboratory Tests 07/22/18 07/22/18 07/22/18 17:33 17:50 18:00 WBC 11.1 H RBC 3.87 L Hgb 11.4 L Hct 34.9 L MCV 90.2 MCH 29.5 MCHC 32.7 RDW 14.8 Plt Count 314 MPV 7.3 L Neut # (Auto) 9.0 H Lymph # (Auto) 1.5 [place] # (Auto) 0.5 Eos # (Auto) 0.1 Baso # (Auto) 0.1 Absolute Nucleated RBC 0.00 Nucleated RBC % 0.0 Sodium 131 L Potassium 3.8 Chloride 103 Carbon Dioxide 20 L Anion Gap 8.0 BUN 9 Creatinine 0.4 Estimated GFR (MDRD) 187 Glucose 103 H Calcium 7.9 L Total Bilirubin 0.3 AST 79 H ALT 218 H Alkaline Phosphatase 60 Total Protein 6.9 Albumin 3.4 Globulin 3.5 Albumin/Globulin Ratio 1.0 Lipase 22 HCG, Quant Blood Type O POSITIVE Antibody Screen NEGATIVE 07/22/18 18:00 WBC RBC Hgb Hct MCV MCH MCHC RDW Plt Count MPV Neut # (Auto) Lymph # (Auto) [place] # (Auto) Eos # (Auto) Baso # (Auto) Absolute Nucleated RBC Nucleated RBC % Sodium Potassium Chloride Carbon Dioxide Anion Gap BUN Creatinine Estimated GFR (MDRD) Glucose Calcium Total Bilirubin AST ALT Alkaline Phosphatase Total Protein Albumin Globulin Albumin/Globulin Ratio Lipase HCG, Quant 3970.00 Blood Type Antibody Screen PD MEDICAL DECISION MAKING - ED course Complexity details: reviewed results, re-evaluated patient, considered differential, d/w patient, d/w risk and insurance consultant ED course: 32-year-old female with brisk vaginal bleeding after taking misopristol for a missed . d/w OB and states that we can try methorgine and misopristol. Patient continues to bleed heavily, Dr. Lund will come evaluate the patient. Dr. Lund removed POC, but unable to fully remove the placenta, will take to OR. This document was made in part using voice recognition software. While efforts are made to proofread this document, sound alike and grammatical errors may occur. Departure - Departure Disposition: ED Transfer to [facility] Clinical Impression: Uterine hemorrhage Condition: Stable Discharge Date/Time: 07/22/18 22:24
[2018-07-22 17:55] LABS: BASOPHILS # (AUTO) 0.1 10^3/uL (0.0-0.1); BASOPHILS % (AUTO) 0.5 %; EOSINOPHILS # (AUTO) 0.1 10^3/uL (0.0-0.7); EOSINOPHILS % (AUTO) 0.7 %; HGB - HEMOGLOBIN 11.4 g/dL (12.0-16.0); LYMPHOCYTES # (AUTO) 1.5 10^3/uL (1.5-3.5); LYMPHOCYTES % (AUTO) 13.8 %; MEAN CORPUSCULAR HEMOGLOBIN 29.5 pg (27.0-31.0); MEAN CORPUSCULAR HGB CONC 32.7 g/dL (32.0-36.0); MEAN CORPUSCULAR VOLUME 90.2 fL (81.0-99.0); MEAN PLATELET VOLUME 7.3 fL (7.9-10.8); MONOCYTES # (AUTO) 0.5 10^3/uL (0.0-1.0); MONOCYTES % (AUTO) 4.2 %; NEUTROPHILS % (AUTO) 80.8 %; PLT - PLATELET COUNT 314 10^3/uL (130-450); RED BLOOD COUNT 3.87 10^6/uL (4.20-5.40); RED CELL DISTRIBUTION WIDTH 14.8 % (12.0-15.0); WHITE BLOOD COUNT 11.1 x10^3/uL (4.8-10.8)
[2018-07-22 18:08] LABS: ALBUMIN 3.4 g/dL (3.2-5.5); BILIRUBIN,TOTAL 0.3 mg/dL (0.2-1.0); CALCIUM 7.9 mg/dL (8.5-10.3); CREATININE 0.4 mg/dL (0.4-1.0); TOTAL PROTEIN 6.9 g/dL (6.7-8.2)
[2018-07-22] MEDS ORDERED: LORazepam 2 MG/ML VIAL IVP STA (18:18)
[2018-07-22] MEDS ORDERED: METHYLERGONOVINE 0.2 MG/ML AMP IM STA (19:24)
[2018-07-22] MEDS ORDERED: miSOPROStol 100 MCG TABLET BC STA (19:24)
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
[2018-07-22] MEDS ORDERED: BUPIVACAINE 0.25%-EPI 1:200000 PF 30 ML VIAL ONE (22:15)
[2018-07-22] MEDS ORDERED: LACTATED RINGERS 1,000 ML IV ONE (22:22)
[2018-07-22] MEDS ORDERED: BUPIVACAINE 0.25%-EPI 1:200000 PF 30 ML VIAL SUBQ ONE (22:45)
[2018-07-22] MEDS ORDERED: oxyCODONE 5 MG TABLET PO PRN ×2 (23:09→23:49)
[2018-07-22] MEDS ORDERED: ONDANSETRON 4 MG/2 ML VIAL IVP PRN (23:09)
--- NOTE | 2018-07-22 23:24 | OPERATIVE REPORT ---
Operative Report - General Procedure Date: 07/22/18 Planned Procedure: Dilation and curettage Pre-Op Diagnosis: Incomplete spontaneous Procedure Performed: Dilation and curettage Post Op Diagnosis: Complete spontaneous - Procedure Note Primary Surgeon: Ashely Anesthesia Technique: General ET tube Pathology: Products of conception IV Fluids (mL): 400 Estimated Blood Loss (mL): 30 Urine Output (mL): 20 Findings: Empty uterus felt post procedure Complications: None - Other Other Information/Narrative: Disposition: PACU to extended recovery Prophylaxis: SCD to bilateral lower extremity. Doxycycline. Counseling: Patient had a known missed for which she took misoprostol 600mcg today. She began having bleeding through a pad every 30-60 minutes. She arrived in the ER where she was given another round of misoprostol 600mcg as well as methergine 0.2mg IM. Unfortunately this did not complete her miscarriage. She became more uncomfortable however, and so a speculum was placed. With a ring forcep, the placenta was removed in a large intact specimen. The amnion was intact. The specimen was sent to pathology. F ollowing this, an ultrasound revealed persistent heterogeneous material in the lower uterine segment measuring 1cm in thickness. Patient was advised that going to the OR was recommended. She had lost a fair amount of blood and had failed expectant and medical management. The procedure was discussed. Risks including but not limited to bleeding, infection, trauma to local organs, anesthesia complications, and failure to cure were reviewed. She did not have questions. The consent was signed. Procedure: Patient was brought to the OR and induced with general anesthesia. She was placed in low lithotomy in [facility] stirrups. She was prepp'ed and draped in the usual sterile fashion. A speculum was placed and a ring forcep was applied to the anterior lip of the cervix. A 10mm suction curette was introduced into the uterus and more products of conception were removed. Good cry was felt throughout the uterine cavity. The os was observed and there was no active bleeding seen. All instruments were removed. She was washed and returned to the supine position prior to waking.
[2018-07-22] MEDS ORDERED: LIDOCAINE-MPF 2% 5 ML VIAL IM ONE (23:30)
[2018-07-22] MEDS ORDERED: DEXAMETHASONE 4 MG/ML VIAL IVP ONE (23:30)
[2018-07-22] MEDS ORDERED: KETOROLAC 30 MG/ML VIAL IVP ONE (23:30)
[2018-07-22] MEDS ORDERED: SUCCINYLCHOLINE 200 MG/10 ML VIAL IVP ONE (23:30)
[2018-07-22] MEDS ORDERED: ONDANSETRON 4 MG/2 ML VIAL IVP ONE (23:30)
[2018-07-22] MEDS ORDERED: MIDAZOLAM 2 MG/2 ML VIAL IVP ONE (23:30)
[2018-07-22] MEDS ORDERED: fentaNYL 100 MCG/2 ML VIAL IVP ONE (23:30)
[2018-07-22] MEDS ORDERED: ROCURONIUM 50 MG/5 ML VIAL IVP ONE (23:30)
[2018-07-22] MEDS ORDERED: PROPOFOL 200 MG/20 ML VIAL IVP ONE (23:30)
[2018-07-23] MEDS: DOXYCYCLINE INJ 100 MG in SODIUM CHLORIDE 0.9% MINIBAG 100 ML IV SCH ×2 (00:27→10:14)
[2018-07-23] MEDS: IBUPROFEN 600 MG TABLET PO SCH ×2 (06:23→11:29)
[2018-07-23] MEDS ORDERED: SODIUM CHLORIDE FLUSH 0.9% 10 ML SYRINGE ONE (10:08)
[2018-07-23 12:30] VITALS: BP 123/54
== END 2018-07-23 12:35 | disposition home or self-care (01) ==
LOC: EDUNIT# → ED 17:19 → SDS 22:40 → MS3 07-23 00:14 → SDS 07-23 12:35
PROVIDERS: ATTEND Obstetrics & Gynecology
PROC: 10D17ZZ Extraction of Products of Conception, Retained, Via Natural or Artificial Opening (ICD-10-PCS; principal; 2018-07-22 22:15)
DX: O03.1 Delayed or excessive hemorrhage following incomplete spontaneous abortion (principal); F17.200 Nicotine dependence, unspecified, uncomplicated; J45.909 Unspecified asthma, uncomplicated; Z87.820 Personal history of traumatic brain injury
CPT/HCPCS: 36415; 59812; 80053; 83690; 84702; 85025; 86850; 86900; 86901; 96361; 96374; 96375; 99283; 99284; A9270; J0330; J1170; J2060; J7120; 85014; 85018

== ENCOUNTER 2018-09-13 20:30 | Emergency (ER) | payer MEDICAID ==
[2018-09-13] MEDS ORDERED: KETOROLAC 60 MG/2 ML VIAL IM STA (22:10)
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
[2018-09-13 22:30] LABS: BILIRUBIN,URINE NEGATIVE (NEGATIVE); GLUCOSE, URINE (UA) NEGATIVE (NEGATIVE); KETONES,URINE (UA) NEGATIVE (NEGATIVE); LEUKOCYTE ESTERASE, URINE NEGATIVE (NEGATIVE); NITRITE,URINE POSITIVE (NEGATIVE); OCCULT BLOOD,URINE NEGATIVE (NEGATIVE); PROTEIN,URINE NEGATIVE (NEGATIVE); UROBILINOGEN,URINE 0.2 (NORMAL) E.U./dL (NORMAL)
[2018-09-13 22:31] LABS: CLARITY,URINE HAZY (CLEAR)
[2018-09-13 22:35] LABS: BACTERIA,URINE Many /HPF (None Seen); RBC,URINE 0-5 /HPF (0-5); SQUAMOUS EPITHELIAL CELL,UR MOD Squamous (<= Few)
[2018-09-13] MEDS ORDERED: CYCLOBENZAPRINE 10 MG TABLET PO STA (23:32)
[2018-09-14 00:09] VITALS: BP 138/76
== END 2018-09-14 00:09 | disposition home or self-care (01) ==
LOC: ED 20:30
DX: S39.92XA Unspecified injury of lower back, initial encounter (principal); W18.39XA Other fall on same level, initial encounter; Y04.8XXA Assault by other bodily force, initial encounter; W22.8XXA Striking against or struck by other objects, initial encounter
CPT/HCPCS: 81001; 96372; 99283; 99284; A9270; 81003; 87086

== ENCOUNTER 2019-01-29 13:55 | Outpatient (CLI) | payer MEDICAID ==
[2019-01-29 19:08] LABS: BASOPHILS # (AUTO) 0.1 10^3/uL (0.0-0.1); BASOPHILS % (AUTO) 0.6 %; EOSINOPHILS # (AUTO) 0.1 10^3/uL (0.0-0.7); EOSINOPHILS % (AUTO) 1.6 %; HGB - HEMOGLOBIN 9.6 g/dL (12.0-16.0); LYMPHOCYTES # (AUTO) 2.1 10^3/uL (1.5-3.5); LYMPHOCYTES % (AUTO) 25.5 %; MEAN CORPUSCULAR HEMOGLOBIN 20.3 pg (27.0-31.0); MEAN CORPUSCULAR HGB CONC 28.2 g/dL (32.0-36.0); MEAN CORPUSCULAR VOLUME 71.9 fL (81.0-99.0); MEAN PLATELET VOLUME 8.9 fL (7.9-10.8); MONOCYTES # (AUTO) 0.5 10^3/uL (0.0-1.0); MONOCYTES % (AUTO) 6.5 %; NEUTROPHILS # (AUTO) 5.3 10^3/uL (1.5-6.6); NEUTROPHILS % (AUTO) 65.6 %; PLT - PLATELET COUNT 456 10^3/uL (130-450); RED BLOOD COUNT 4.73 10^6/uL (4.20-5.40); RED CELL DISTRIBUTION WIDTH 21.3 % (12.0-15.0)
[2019-01-29 20:01] LABS: PLATELET ESTIMATE, MANUAL INCREASED (>450,000) (NORMAL); PLATELET MORPHOLOGY 1+ GIANT PLATELETS (NORMAL)
[2019-01-29 20:05] LABS: FREE T4 (FREE THYROXINE) 0.96 ng/dL (0.58-1.64)
[2019-01-29 20:40] LABS: ALBUMIN 3.6 g/dL (3.2-5.5); ALKALINE PHOSPHATASE 73 IU/L (42-121); ALT ALANINE AMINOTRANSFERASE 16 IU/L (10-60); AST ASPARTATE AMINOTRANSFERASE 16 IU/L (10-42); BILIRUBIN,TOTAL 0.2 mg/dL (0.2-1.0); BUN - BLOOD UREA NITROGEN 12 mg/dL (6-20); CALCIUM 8.8 mg/dL (8.5-10.3); CARBON DIOXIDE - CO2 25 mmol/L (21-32); CHLORIDE 106 mmol/L (101-111); CHOL/HDL RATIO 3.3 (<4.4); CHOLESTEROL 205 mg/dL; CREATININE 0.6 mg/dL (0.4-1.0); GFR - MDRD 117 (>89); GLUCOSE 103 mg/dL (70-100); HDL CHOLESTEROL 62 mg/dL; LDL CHOLESTEROL,CALCULATED 120 mg/dL; LDL/HDL RATIO 1.9 (<4.4); SODIUM 140 mmol/L (135-145); TOTAL PROTEIN 7.3 g/dL (6.7-8.2); VLDL CHOLESTEROL 23 mg/dL
== END 2019-01-29 23:59 | disposition home or self-care (01) ==
LOC: LAB.N 13:55
PROVIDERS: ATTEND Physician Assistant Medical
DX: F15.21 Other stimulant dependence, in remission (principal); Z72.0 Tobacco use; M54.5 Low back pain
CPT/HCPCS: 36415; 80053; 80061; 83721; 84439; 84443; 85025

== ENCOUNTER 2019-01-30 07:51 | Emergency (ER) | payer MEDICAID ==
[2019-01-30 08:01] VITALS: BP 164/82
[2019-01-30] MEDS ORDERED: cephALEXin 250 MG CAPSULE PO STA (08:30)
[2019-01-30] MEDS ORDERED: SULFAMETH/TRIMETH DS 800/160 MG TABLET PO STA (08:30)
[2019-01-30] MEDS ORDERED: HYDROcod/ACETAM 5/325 MG TABLET PO STA (08:30)
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
== END 2019-01-30 08:59 | disposition home or self-care (01) ==
LOC: ED 07:51
DX: L03.221 Cellulitis of neck (principal); F17.200 Nicotine dependence, unspecified, uncomplicated
CPT/HCPCS: 99282; 99283; A9270

== ENCOUNTER 2019-03-22 09:41 | Outpatient (CLI) | payer MEDICAID ==
--- NOTE | 2019-03-22 10:26 | XRAY Report ---
Reason: LOWER BACK PAIN Procedure Date: 03/22/2019 Accession Number: [id number] / [id number] Procedure: XRN - Lumbar Spine 2 View CPT Code: Final Report FULL RESULT: EXAM: LUMBOSACRAL SPINE RADIOGRAPHY EXAM DATE: 03/22/2019 10:02 AM. CLINICAL HISTORY: LOWER BACK PAIN. COMPARISONS: None. TECHNIQUE: 3 views. FINDINGS: Alignment: Normal. No spondylolisthesis or scoliosis. Bones: Five aad-hbi-vmbckxb lumbar vertebral bodies are present. No fractures or bone lesions. Disks: L4-L5, L5-S1 disk space narrowing Facets: No degenerative changes. Sacroiliac Joints: Unremarkable. Soft Tissues: Right upper quadrant clips. The visualized bowel gas pattern is normal. IMPRESSION: Mild degenerative changes RADIA
== END 2019-03-22 09:42 | disposition home or self-care (01) ==
LOC: DI.N 09:41
PROVIDERS: ATTEND Physician Assistant Medical
DX: M51.36 Other intervertebral disc degeneration, lumbar region (principal); M51.37 Other intervertebral disc degeneration, lumbosacral region
CPT/HCPCS: 72100

== ENCOUNTER 2019-03-30 14:27 | Emergency (ER) | payer MEDICAID ==
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
[2019-03-30] MEDS ORDERED: KETOROLAC 60 MG/2 ML VIAL IM STA (15:52)
[2019-03-30] MEDS ORDERED: CYCLOBENZAPRINE 10 MG TABLET PO STA (15:54)
[2019-03-30] MEDS ORDERED: HYDROcod/ACETAM 5/325 MG TABLET PO STA (15:56)
[2019-03-30 16:17] LABS: MUDS CUTOFF CONCENTRATIONS CUTOFF CONC BELOW:
[2019-03-30 16:21] LABS: BILIRUBIN,URINE NEGATIVE (NEGATIVE); GLUCOSE, URINE (UA) NEGATIVE (NEGATIVE); KETONES,URINE (UA) NEGATIVE (NEGATIVE); LEUKOCYTE ESTERASE, URINE NEGATIVE (NEGATIVE); NITRITE,URINE NEGATIVE (NEGATIVE); OCCULT BLOOD,URINE NEGATIVE (NEGATIVE); PROTEIN,URINE NEGATIVE (NEGATIVE); UROBILINOGEN,URINE 0.2 (NORMAL) E.U./dL (NORMAL)
[2019-03-30 16:36] LABS: AMPHETAMINE SCREEN,URINE POSITIVE (NEGATIVE); BENZODIAZEPINES SCREEN, URINE NEGATIVE (NEGATIVE); CLARITY,URINE HAZY (CLEAR); COCAINE SCREEN URINE NEGATIVE (NEGATIVE); METHADONE SCREEN, URINE NEGATIVE (NEGATIVE); METHAMPHETAMINES SCREEN, URINE POSITIVE (NEGATIVE); OPIATE SCREEN, URINE NEGATIVE (NEGATIVE); OXYCODONE SCREEN, URINE NEGATIVE (NEGATIVE); PROPOXYPHENE SCREEN, URINE NEGATIVE (NEGATIVE); TRICYCLIC ANTIDEPRESSANT,URINE NEGATIVE (NEGATIVE)
[2019-03-30 16:44] LABS: RBC,URINE 0-5 /HPF (0-5); SQUAMOUS EPITHELIAL CELL,UR MANY Squamous (<= Few)
[2019-03-30 16:45] LABS: BACTERIA,URINE Few /HPF (None Seen); MUCUS,URINE Moderate Strands
[2019-03-30 17:13] LABS: HCG UR QUAL POSITIVE
[2019-03-30 17:31] LABS: BASOPHILS % (AUTO) 0.4 %; EOSINOPHILS # (AUTO) 0.1 10^3/uL (0.0-0.7); EOSINOPHILS % (AUTO) 1.1 %; HGB - HEMOGLOBIN 9.8 g/dL (12.0-16.0); LYMPHOCYTES % (AUTO) 36.1 %; MEAN CORPUSCULAR HEMOGLOBIN 21.1 pg (27.0-31.0); MEAN CORPUSCULAR HGB CONC 29.3 g/dL (32.0-36.0); MEAN CORPUSCULAR VOLUME 72.2 fL (81.0-99.0); MEAN PLATELET VOLUME 8.2 fL (7.9-10.8); MONOCYTES # (AUTO) 0.7 10^3/uL (0.0-1.0); MONOCYTES % (AUTO) 8.6 %; NEUTROPHILS # (AUTO) 4.4 10^3/uL (1.5-6.6); NEUTROPHILS % (AUTO) 53.4 %; PLT - PLATELET COUNT 406 10^3/uL (130-450); RED BLOOD COUNT 4.64 10^6/uL (4.20-5.40); RED CELL DISTRIBUTION WIDTH 20.2 % (12.0-15.0); WHITE BLOOD COUNT 8.2 x10^3/uL (4.8-10.8)
[2019-03-30 18:24] VITALS: BP 119/65
== END 2019-03-30 18:53 | disposition home or self-care (01) ==
LOC: ED 14:27
DX: O99.89 Other specified diseases and conditions complicating pregnancy, childbirth and the puerperium (principal); S20.229A Contusion of unspecified back wall of thorax, initial encounter; W20.8XXA Other cause of strike by thrown, projected or falling object, initial encounter; F17.200 Nicotine dependence, unspecified, uncomplicated; Z3A.00 Weeks of gestation of pregnancy not specified
CPT/HCPCS: 36415; 80306; 81001; 81025; 84702; 85025; 96372; 99283; 99284; A9270; 81003; 87086

== ENCOUNTER 2019-04-16 12:28 | Outpatient (CLI) | payer MEDICAID ==
--- NOTE | 2019-04-18 01:37 | Ultrasound Report ---
Reason: POSITIVE TEST Procedure Date: 04/16/2019 Accession Number: [id number] / [id number] Procedure: US - OB First Trimester CPT Code: Final Report FULL RESULT: EXAM: FIRST TRIMESTER OBSTETRIC ULTRASOUND (LESS THAN 11 WEEKS). EXAM DATE: 04/16/2019 02:46 PM. CLINICAL HISTORY: Positive test. LMP: 02/22/2019, 7 weeks 4 days. COMPARISONS: None. TECHNIQUE: Transabdominal and transvaginal ultrasound examination with static image documentation. FINDINGS: Gestational Sac: An intrauterine fluid-filled sac contains both an embryo and yolk sac. Embryo: CRL (crown-rump length) measures 9 mm corresponding to an estimated gestational age of 6 weeks 6 days. Heart Rate: 124 beats per minute. Placenta: Not visible at this gestational age. Amniotic fluid: Not accurately assessed at this gestational age. Uterus: Unremarkable anteverted appearance. Cervix: Closed. Ovaries: Neither visualized due to bowel gas. No adnexal masses seen. Free Fluid: None. Other: None. IMPRESSION: Single live intrauterine at 7 weeks 4 days by LMP, today's exam is concordant -- for an estimated delivery date of 11/29/2019. RADIA
== END 2019-04-16 12:29 | disposition home or self-care (01) ==
LOC: DI 12:28
PROVIDERS: ATTEND Nurse Practitioner Obstetrics & Gynecology
DX: Z32.01 Encounter for pregnancy test, result positive (principal)
CPT/HCPCS: 76801; 76817

== ENCOUNTER 2019-04-19 12:08 | Outpatient (CLI) | payer MEDICAID ==
[2019-04-19 13:56] LABS: BILIRUBIN,URINE NEGATIVE (NEGATIVE); GLUCOSE, URINE (UA) NEGATIVE (NEGATIVE); KETONES,URINE (UA) NEGATIVE (NEGATIVE); LEUKOCYTE ESTERASE, URINE NEGATIVE (NEGATIVE); NITRITE,URINE NEGATIVE (NEGATIVE); OCCULT BLOOD,URINE NEGATIVE (NEGATIVE); PH,URINE 6.5 PH (5.0-7.5); PROTEIN,URINE NEGATIVE (NEGATIVE); UROBILINOGEN,URINE 0.2 (NORMAL) E.U./dL (NORMAL)
[2019-04-19 14:01] LABS: CLARITY,URINE CLEAR (CLEAR)
[2019-04-19 14:04] LABS: BACTERIA,URINE None Seen /HPF (None Seen); MUDS CUTOFF CONCENTRATIONS CUTOFF CONC BELOW:; RBC,URINE None Seen /HPF (0-5); SQUAMOUS EPITHELIAL CELL,UR MOD Squamous (<= Few)
[2019-04-19 14:19] LABS: AMPHETAMINE SCREEN,URINE NEGATIVE (NEGATIVE); BENZODIAZEPINES SCREEN, URINE NEGATIVE (NEGATIVE); COCAINE SCREEN URINE NEGATIVE (NEGATIVE); METHADONE SCREEN, URINE NEGATIVE (NEGATIVE); METHAMPHETAMINES SCREEN, URINE NEGATIVE (NEGATIVE); OPIATE SCREEN, URINE NEGATIVE (NEGATIVE); OXYCODONE SCREEN, URINE NEGATIVE (NEGATIVE); PROPOXYPHENE SCREEN, URINE NEGATIVE (NEGATIVE); TRICYCLIC ANTIDEPRESSANT,URINE NEGATIVE (NEGATIVE)
[2019-04-19 14:56] LABS: CREATININE,URINE 60.1 mg/dL
[2019-04-19 15:00] LABS: ALBUMIN 3.3 g/dL (3.2-5.5); BILIRUBIN,TOTAL 0.3 mg/dL (0.2-1.0); CALCIUM 8.5 mg/dL (8.5-10.3); CREATININE 0.5 mg/dL (0.4-1.0); TOTAL PROTEIN 6.5 g/dL (6.7-8.2)
[2019-04-19 15:02] LABS: TOTAL PROTEIN,URINE TIMED < 6 mg/dL
[2019-04-19 15:30] LABS: THYROID STIMULATING HORMONE 0.43 uIU/mL (0.34-5.60)
[2019-04-19 15:32] LABS: FREE T4 (FREE THYROXINE) 0.9 ng/dL (0.58-1.64)
[2019-04-20 10:55] LABS: HIV AG/AB 4TH GEN NON-REACTIVE (NON-REACTIVE)
[2019-04-20 12:19] LABS: HEPATITIS C ANTIBODY REACTIVE (NON-REACTIVE)
[2019-04-20 12:33] LABS: HEPATITIS B SURFACE ANTIGEN NON-REACTIVE (NON-REACTIVE)
[2019-04-24 15:34] LABS: HCV RNA QNT <1.18 DETECTED Log IU/mL (NOT DETECTED); HCV RNA QUANT RT PCR <15 DETECTED IU/mL (NOT DETECTED)
== END 2019-04-19 12:09 | disposition home or self-care (01) ==
LOC: LAB 12:08
PROVIDERS: ATTEND Obstetrics & Gynecology
DX: Z36.89 Encounter for other specified antenatal screening (principal)
CPT/HCPCS: 36415; 80053; 80306; 81001; 81599; 82570; 83036; 84156; 84439; 84443; 85025; 86592; 86762; 86803; 86850; 86900; 86901; 87086; 87340; 87389; 87522

== ENCOUNTER 2019-04-20 09:59 | Outpatient (CLI) | payer MEDICAID ==
[2019-04-20 10:28] LABS: BASOPHILS % (AUTO) 0.4 %; EOSINOPHILS # (AUTO) 0.1 10^3/uL (0.0-0.7); EOSINOPHILS % (AUTO) 1.2 %; HGB - HEMOGLOBIN 9.2 g/dL (12.0-16.0); LYMPHOCYTES # (AUTO) 2.4 10^3/uL (1.5-3.5); LYMPHOCYTES % (AUTO) 31.7 %; MEAN CORPUSCULAR HEMOGLOBIN 22.2 pg (27.0-31.0); MEAN CORPUSCULAR HGB CONC 29.7 g/dL (32.0-36.0); MEAN CORPUSCULAR VOLUME 74.9 fL (81.0-99.0); MEAN PLATELET VOLUME 8.6 fL (7.9-10.8); MONOCYTES # (AUTO) 0.5 10^3/uL (0.0-1.0); MONOCYTES % (AUTO) 5.9 %; NEUTROPHILS # (AUTO) 4.6 10^3/uL (1.5-6.6); NEUTROPHILS % (AUTO) 60.4 %; PLT - PLATELET COUNT 354 10^3/uL (130-450); RED BLOOD COUNT 4.14 10^6/uL (4.20-5.40); WHITE BLOOD COUNT 7.6 x10^3/uL (4.8-10.8)
[2019-04-20 10:54] LABS: PLATELET ESTIMATE, MANUAL NORMAL (130-450,000) (NORMAL); PLATELET MORPHOLOGY NORMAL APPEARANCE (NORMAL)
[2019-04-20 11:01] LABS: HEMOGLOBIN A1C 0.25 g/dL; HEMOGLOBIN A1C % 4.7 % (4.6-6.2)
== END 2019-04-20 10:00 | disposition home or self-care (01) ==
LOC: LAB 09:59
PROVIDERS: ATTEND Obstetrics & Gynecology
DX: Z36.89 Encounter for other specified antenatal screening (principal)
CPT/HCPCS: 36415; 83036; 85025; 86850; 86900; 86901

== ENCOUNTER 2019-04-26 11:03 | Outpatient (CLI) | payer MEDICAID ==
[2019-04-26 12:26] LABS: % IRON SATURATION 37 % (20-50); ALBUMIN 3.5 g/dL (3.2-5.5); ALKALINE PHOSPHATASE 53 IU/L (42-121); ALT ALANINE AMINOTRANSFERASE 15 IU/L (10-60); AST ASPARTATE AMINOTRANSFERASE 14 IU/L (10-42); BILIRUBIN,TOTAL 0.4 mg/dL (0.2-1.0); IRON 181 ug/dL (28-170); TOTAL IRON BINDING CAPACITY 486 ug/dL (250-450); TOTAL PROTEIN 7.1 g/dL (6.7-8.2); TRANSFERRIN 347 mg/dL (192-382)
[2019-04-26 12:29] LABS: BILIRUBIN,DIRECT < 0.1 mg/dL (0.1-0.5)
[2019-04-27 11:52] LABS: HEPATITIS C ANTIBODY REACTIVE (NON-REACTIVE)
[2019-04-30 19:08] LABS: HCV RNA QNT 2.39 Log IU/mL (NOT DETECTED); HCV RNA QUANT RT PCR 246 IU/mL (NOT DETECTED)
== END 2019-04-26 11:04 | disposition home or self-care (01) ==
LOC: LAB 11:03
PROVIDERS: ATTEND Obstetrics & Gynecology
DX: O99.019 Anemia complicating pregnancy, unspecified trimester (principal); D64.9 Anemia, unspecified; Z3A.00 Weeks of gestation of pregnancy not specified; O98.42 Viral hepatitis complicating childbirth; B19.20 Unspecified viral hepatitis C without hepatic coma; Z37.9 Outcome of delivery, unspecified
CPT/HCPCS: 36415; 80076; 81599; 82728; 83021; 83540; 84466; 85014; 85018; 85041; 86803; 87522

== ENCOUNTER 2019-05-10 08:00 | Outpatient (CLI) | payer MEDICAID ==
[2019-05-10 22:24] LABS: TRICHOMONAS VAGINALIS DNA NEGATIVE (NEGATIVE)
== END 2019-05-10 23:59 | disposition home or self-care (01) ==
LOC: LAB.R 08:00
PROVIDERS: ATTEND Obstetrics & Gynecology
DX: Z12.4 Encounter for screening for malignant neoplasm of cervix (principal)
CPT/HCPCS: 87491; 87591; 87661

== ENCOUNTER 2019-05-10 12:37 | Outpatient (CLI) | payer MEDICAID | END 2019-05-10 12:38 | disposition home or self-care (01) | LOC: LAB 12:37 | PROVIDERS: ATTEND Obstetrics & Gynecology | DX: O24.419 Gestational diabetes mellitus in pregnancy, unspecified control (principal); Z3A.00 Weeks of gestation of pregnancy not specified; Z12.4 Encounter for screening for malignant neoplasm of cervix; O99.019 Anemia complicating pregnancy, unspecified trimester; O09.90 Supervision of high risk pregnancy, unspecified, unspecified trimester; D64.9 Anemia, unspecified | CPT/HCPCS: 36415; 81599; 82950; 87491; 87591; 87661 ==

== ENCOUNTER 2019-05-30 15:45 | Emergency (ER) | payer MEDICAID ==
[2019-05-30 15:51] VITALS: BP 131/69
--- NOTE | 2019-05-30 16:01 | ED Physician Documentation ---
PD HPI URI - Stated complaint Stated Complaint: SOA - Chief complaint Chief Complaint: Resp - History obtained from History obtained from: Patient - History of Present Illness Timing - onset: How many days ago (few) Timing duration: Days (few days of some cough, congestion and increased wheezing. History of asthma. Not feverish.) Timing details: Gradual onset, Still present Associated symptoms: Nasal congestion, Dry cough, Dyspnea. No: Fever, Ear pain, Sore throat, Hemoptysis, NVD, Bilateral edema Contributing factors: COPD / asthma. No: Sick contact, Travel, Immunocompromised Improves by: MDI/nebulizer (but not prolonged/persistent improvement.) Worsened by: Activity Similar symptoms before: Diagnosis (asthma exac with URIs.) Recently seen: Not recently seen, Other (screened and tested for COVID at [facility] Review of Systems Constitutional: denies: Fever Ears: denies: Ear pain Nose: reports: Congestion Throat: denies: Sore throat Cardiac: denies: Chest pain / pressure Respiratory: reports: Dyspnea, Cough, Wheezing GI: denies: Vomiting, Diarrhea : reports: Now EGA (14 wks). denies: Vaginal bleeding Skin: denies: Rash Musculoskeletal: denies: Back pain Neurologic: reports: Generalized weakness PD PAST MEDICAL HISTORY - Past Medical History Past Medical History: Yes Cardiovascular: None Respiratory: Asthma Neuro: Head injury Endocrine/Autoimmune: None GI: None, GERD SCHOOL COORDINATOR: None : None HEENT: None Psych: None Musculoskeletal: None Derm: None - Past Surgical History Past Surgical History: Yes General: Cholecystectomy /SCHOOL COORDINATOR: section - Present Medications Home Medications: Ambulatory Orders Medication Instructions Recorded Confirmed Albuterol Sulfate [Albuterol 2 puffs IH QID #1 hfa.aer.ad 05/30/19 Sulfate Hfa] Benzonatate [Tessalon Perle] 100 mg PO TID PRN #30 capsule 05/30/19 dexAMETHasone [Decadron] 4 mg PO DAILY #5 tablet 05/30/19 - Allergies Allergies/Adverse Reactions: Allergies Allergy/AdvReac Type Severity Reaction Status Date / Time No Known Drug Allergies Allergy Verified 05/30/19 15:51 - Social History Does the pt smoke?: Yes Smoking Status: Current every day smoker Does the pt drink ETOH?: No Does the pt have substance abuse?: No - Immunizations Immunizations are current?: Yes - POLST Patient has POLST: No PD ED PE NORMAL - Vitals Vital signs reviewed: Yes - General General: Alert and oriented X 3, No acute distress, Well developed/nourished - HEENT HEENT: Ears normal, Pharynx benign - Neck Neck: Supple, no meningeal sign, No adenopathy - Cardiac Cardiac: RRR, No murmur - Respiratory Respiratory: No respiratory distress. No: Clear bilaterally (no coarse sounds. Has mild exp wheezing noted. ) - Abdomen Abdomen: Soft, Non tender, Non distended, Other (bedside US showing IUP c/w dates with good HR and movement. ) - Derm Derm: Normal color, Warm and dry - Extremities Extremities: No edema, No calf tenderness / cord - Neuro Neuro: Alert and oriented X 3, No motor deficit, Normal speech Results - Vitals Vitals: Vital Signs - 24 hr 05/30/19 05/30/19 05/30/19 15:47 16:40 16:42 Temperature 98.4 C H 37.2 C Heart Rate 106 H 105 H 111 H Respiratory 24 26 H 18 Rate Blood Pressure 131/69 H O2 Saturation 99 98 Oxygen O2 Source Room air PD MEDICAL DECISION MAKING - ED course Complexity details: reviewed results (Bedside U/S showing normal HR and movement, good position. ), considered differential (seems like regular URI. [place], so result pending. Treated as possible COVID in ER. Has exac asthma, so will give steroids and continue Albuterol. Tessalon PRN. All are okay in . ), d/w patient Departure - Departure Disposition: 01 Home, Self Care Clinical Impression: Upper respiratory infection Qualifiers: URI type: unspecified URI Qualified Code(s): J06.9 - Acute upper respiratory infection, unspecified Exacerbation of asthma Qualifiers: Asthma severity: mild Asthma persistence: intermittent Qualified Code(s): J45.21 - Mild intermittent asthma with (acute) exacerbation Condition: Stable Record reviewed to determine appropriate education?: Yes Instructions: ED URI Viral W Wheezing Prescriptions: Albuterol Sulfate [Albuterol Sulfate Hfa] 2 puffs IH QID #1 hfa.aer.ad Benzonatate [Tessalon Perle] 100 mg PO TID PRN #30 capsule PRN Reason: Cough dexAMETHasone [Decadron] 4 mg PO DAILY #5 tablet Comments: Use your albuterol inhaler 2 to 3 puffs with the spacer 4 times a day and then extra times as needed. Add Decadron steroid daily for 5 days to reduce bronchial inflammation. Use Tessalon if needed for cough suppression. Tylenol as needed for fevers and pains. Your baby appears well on bedside ultrasound. Stay well-hydrated. Return if worsening breathing or other symptoms. Your coronavirus test will result in several days and you will be notified if positive. Discharge Date/Time: 05/30/19 17:03
[2019-05-30] MEDS ORDERED: CHERRY SYRUP 10 ML UDC PO ONE (16:24)
[2019-05-30] MEDS ORDERED: ALBUTEROL NEB 2.5 MG/3 ML INH STA (16:24)
[2019-05-30] MEDS ORDERED: DEXAMETHASONE 10 MG/ML VIAL PO STA (16:24)
[2019-05-30] MEDS ORDERED: ACETAMINOPHEN 325 MG TABLET PO STA (16:25)
[2019-05-30] MEDS ORDERED: BENZONATATE 100 MG CAPSULE PO STA (16:25)
== END 2019-05-30 17:03 | disposition home or self-care (01) ==
LOC: ED 15:45
DX: J06.9 Acute upper respiratory infection, unspecified (principal); J45.21 Mild intermittent asthma with (acute) exacerbation; O99.332 Smoking (tobacco) complicating pregnancy, second trimester; F17.200 Nicotine dependence, unspecified, uncomplicated; Z3A.14 14 weeks gestation of pregnancy; R05 Cough
CPT/HCPCS: 94640; 94664; 99283; 99284; A9270

== ENCOUNTER 2019-05-30 17:50 | Outpatient (CLI) | payer MEDICAID | END 2019-05-30 17:51 | disposition home or self-care (01) | LOC: COV 17:50 | PROVIDERS: ATTEND Family Medicine | DX: R05 Cough (principal) ==

== ENCOUNTER 2019-06-03 14:50 | Emergency (ER) | payer MEDICAID ==
[2019-06-03] MEDS ORDERED: ONDANSETRON 4 MG/2 ML VIAL IVP STA (15:15)
[2019-06-03] MEDS ORDERED: ALBUTEROL NEB 2.5 MG/3 ML INH STA ×2 (15:15→16:39)
[2019-06-03] MEDS ORDERED: SODIUM CHLORIDE 0.9% 1,000 ML IV ONE ×2 (15:15→16:36)
[2019-06-03] MEDS ORDERED: guaiFENesin/CODEINE 5 ML UDC PO STA (15:18)
[2019-06-03] MEDS ORDERED: DEXAMETHASONE 10 MG/ML VIAL IVP STA (15:18)
[2019-06-03 16:05] LABS: BASOPHILS % (AUTO) 0.2 %; HGB - HEMOGLOBIN 10.9 g/dL (12.0-16.0)
[2019-06-03 16:08] LABS: EOSINOPHILS % (AUTO) 0.2 %; LYMPHOCYTES # (AUTO) 1.4 10^3/uL (1.5-3.5); LYMPHOCYTES % (AUTO) 31.9 %; MEAN CORPUSCULAR HEMOGLOBIN 24.5 pg (27.0-31.0); MEAN CORPUSCULAR HGB CONC 32.3 g/dL (32.0-36.0); MEAN CORPUSCULAR VOLUME 75.7 fL (81.0-99.0); MEAN PLATELET VOLUME 9.2 fL (7.9-10.8); MONOCYTES # (AUTO) 0.3 10^3/uL (0.0-1.0); MONOCYTES % (AUTO) 6.9 %; NEUTROPHILS # (AUTO) 2.6 10^3/uL (1.5-6.6); NEUTROPHILS % (AUTO) 60.6 %; PLT - PLATELET COUNT 286 10^3/uL (130-450); RED BLOOD COUNT 4.45 10^6/uL (4.20-5.40); RED CELL DISTRIBUTION WIDTH 20.6 % (12.0-15.0); WHITE BLOOD COUNT 4.2 x10^3/uL (4.8-10.8)
[2019-06-03 16:19] LABS: ALBUMIN 3.2 g/dL (3.2-5.5); ALBUMIN/GLOBULIN RATIO 0.8 (1.0-2.2); BILIRUBIN,TOTAL 0.5 mg/dL (0.2-1.0); CALCIUM 8.5 mg/dL (8.5-10.3); CREATININE 0.4 mg/dL (0.4-1.0); TOTAL PROTEIN 7.1 g/dL (6.7-8.2)
--- NOTE | 2019-06-03 16:23 | XRAY Report ---
Reason: cough/dyspnea Procedure Date: 06/03/2019 Accession Number: [id number] / [id number] Procedure: XR - Chest 1 View X-Ray CPT Code: 24115 Final Report FULL RESULT: EXAM: CHEST RADIOGRAPHY EXAM DATE: 06/03/2019 03:48 PM. CLINICAL HISTORY: Cough/dyspnea. Patient complains of worsening shortness of air with cough. Patient also reports 14.5 weeks and vomiting, headaches. COMPARISON: CHEST W/ 02/22/2018 10:59 AM. TECHNIQUE: 1 view. FINDINGS: Lungs/Pleura: There are low lung volumes with mild bibasilar atelectasis and central bronchovascular crowding. No acute infiltrate or consolidation appreciated. No pneumothorax or large pleural effusion. Mediastinum: Within exam limitations, the cardiomediastinal contour is normal. Other: None. IMPRESSION: Low lung volumes, otherwise grossly clear. RADIA
[2019-06-03 16:38] LABS: PLATELET ESTIMATE, MANUAL NORMAL (130-450,000) (NORMAL); PLATELET MORPHOLOGY NORMAL APPEARANCE (NORMAL)
[2019-06-03] MEDS ORDERED: HYDROcod/ACET 5/325 Prepack 4 PO STA (17:47)
[2019-06-03] MEDS ORDERED: ONDANSETRON ODT 4 MG Prepack 2 TL PRN (17:47)
--- NOTE | 2019-06-03 17:51 | ED Physician Documentation ---
PD HPI URI - Stated complaint Stated Complaint: DRY COUGH, SOA - Chief complaint Chief Complaint: Resp - History obtained from History obtained from: Patient - History of Present Illness Timing - onset: How many weeks ago (1) Timing duration: Weeks (1) Timing details: Gradual onset, Still present, Waxing and waning Associated symptoms: Dry cough (barky, and cough keeping her awake. Having cough to point of vomiting at times. Also nausea due to .). No: Fever, Chills Contributing factors: COPD / asthma. No: Sick contact, Travel, Immunocompromised Similar symptoms before: Has not had sx before Recently seen: Emergency Dept (with Rx of decadron, Tessalon, and Albuterol.) Review of Systems Constitutional: reports: Myalgias. denies: Fever, Chills Nose: reports: Congestion. denies: Rhinorrhea / runny nose Throat: denies: Sore throat Cardiac: denies: Chest pain / pressure, Palpitations Respiratory: reports: Dyspnea, Cough, Wheezing GI: reports: Nausea, Vomiting. denies: Abdominal Pain, Diarrhea : reports: Now EGA (14 wks). 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 : None HEENT: None Psych: None Musculoskeletal: None Derm: None - Past Surgical History Past Surgical History: Yes General: Cholecystectomy /SUPERVISOR TICKET SALES: section - Present Medications Home Medications: Ambulatory Orders Medication Instructions Recorded Confirmed Albuterol Sulfate [Albuterol 2 puffs IH QID #1 hfa.aer.ad 05/30/19 Sulfate Hfa] Benzonatate [Tessalon Perle] 100 mg PO TID PRN #30 capsule 05/30/19 dexAMETHasone [Decadron] 4 mg PO DAILY #5 tablet 05/30/19 Hydrocodone/Acetaminophen 1 each PO Q6H PRN #14 tablet 06/03/19 [Hydrocodon-Acetaminophen 5-325] Ondansetron Odt [Zofran] 4 mg TL Q6H PRN #25 tablet 06/03/19 dexAMETHasone [Decadron] 4 mg PO DAILY #5 tablet 06/03/19 - Allergies Allergies/Adverse Reactions: Allergies Allergy/AdvReac Type Severity Reaction Status Date / Time No Known Drug Allergies Allergy Verified 06/03/19 15:22 - Social History Does the pt smoke?: Yes Smoking Status: Current every day smoker Does the pt drink ETOH?: No Does the pt have substance abuse?: No - Immunizations Immunizations are current?: Yes - POLST Patient has POLST: No PD ED PE NORMAL - Vitals Vital signs reviewed: Yes - General General: Alert and oriented X 3, Well developed/nourished - HEENT HEENT: Ears normal, Pharynx benign. No: Moist mucous membranes - Neck Neck: Supple, no meningeal sign, No adenopathy - Cardiac Cardiac: RRR, No murmur - Respiratory Respiratory: No: Clear bilaterally (wheezing and prolonged exp phase. Barking cough at times. no congested sounds. ) - Abdomen Abdomen: Soft, Non tender (obese. Bedside U/S showing normal IUP. ) - Derm Derm: Normal color, Warm and dry - Extremities Extremities: Normal ROM s pain, No edema, No calf tenderness / cord - Neuro Neuro: Alert and oriented X 3, No motor deficit, Normal speech Results - Vitals Vitals: Vital Signs - 24 hr 06/03/19 06/03/19 06/03/19 15:17 16:08 16:14 Temperature 35.4 C L Heart Rate 87 85 87 Respiratory 22 16 20 Rate Blood Pressure 127/67 135/64 H O2 Saturation 99 100 06/03/19 06/03/19 16:50 17:57 Temperature 36.9 C Heart Rate 83 93 Respiratory 20 16 Rate Blood Pressure 140/82 H O2 Saturation 100 Oxygen O2 Source Room air - Labs Labs: Laboratory Tests 06/03/19 06/03/19 16:00 16:00 WBC 4.2 L RBC 4.45 Hgb 10.9 L Hct 33.7 L MCV 75.7 L MCH 24.5 L MCHC 32.3 RDW 20.6 H Plt Count 286 MPV 9.2 Neut # (Auto) 2.6 Lymph # (Auto) 1.4 L [place] # (Auto) 0.3 Eos # (Auto) 0.0 Baso # (Auto) 0.0 Absolute Nucleated RBC 0.00 Nucleated RBC % 0.0 Manual Slide Review Indicated Platelet Estimate NORMAL (130-450,000) Platelet Morphology NORMAL APPEARANCE RBC Morph Micro Appear 1+ HYPOCHROMASIA Sodium 131 L Potassium 3.5 Chloride 102 Carbon Dioxide 21 Anion Gap 8.0 BUN 13 Creatinine 0.4 Estimated GFR (MDRD) 186 Glucose 97 Calcium 8.5 Total Bilirubin 0.5 AST 23 ALT 26 Alkaline Phosphatase 53 Total Protein 7.1 Albumin 3.2 Globulin 3.9 Albumin/Globulin Ratio 0.8 L Lipase 25 - Rads (name of study) chest xray Radiology: Prelim report reviewed (normal chest xray), See rad report PD MEDICAL DECISION MAKING - ED course Complexity details: reviewed results (given persistent cough and dyspnea, we shared decision for CXR with shielded abd. She would like one. ), considered differential (hard to tell if exac of asthma itself as main issue versus URI. She has barky cough sounding more like croup. Some mild wheezing diffusely. Had COVID test that was negative (certainly has high false negative rate so cannot exclude that).), d/w patient Departure - Departure Disposition: 01 Home, Self Care Clinical Impression: Qualifiers: Weeks of gestation: 14 weeks Qualified Code(s): Z3A.14 - 14 weeks gestation of Upper respiratory infection Qualifiers: URI type: unspecified URI Qualified Code(s): J06.9 - Acute upper respiratory infection, unspecified Nausea and vomiting Qualifiers: Vomiting type: unspecified Vomiting Intractability: non-intractable Qualified Code(s): R11.2 - Nausea with vomiting, unspecified Exacerbation of asthma Qualifiers: Asthma severity: mild Asthma persistence: intermittent Qualified Code(s): J45.21 - Mild intermittent asthma with (acute) exacerbation Condition: Stable Record reviewed to determine appropriate education?: Yes Follow-Up: Meera Orlando MD [Primary Care Provider] - Prescriptions: dexAMETHasone [Decadron] 4 mg PO DAILY #5 tablet Hydrocodone/Acetaminophen [Hydrocodon-Acetaminophen 5-325] 1 each PO Q6H PRN #14 tablet PRN Reason: Cough Ondansetron Odt [Zofran] 4 mg TL Q6H PRN #25 tablet PRN Reason: Nausea / Vomiting Comments: Continue your inhaler 3 to 4 puffs with the spacer 4 times a day regularly for the next week and then extra times as needed. We will extend the Decadron steroid daily for another 5 days to help with the asthma flareup and cough. Continue the Tessalon if needed for cough and add hydrocodone if needed for cough suppression infrequently. Ondansetron for nausea and vomiting. Try to stay well-hydrated. Follow-up with your PROPERTY ASSESSMENT MONITOR in the next few days, call tomorrow for an estelita ointment. Discharge Date/Time: 06/03/19 18:10
[2019-06-03 17:57] VITALS: BP 140/82
== END 2019-06-03 18:10 | disposition home or self-care (01) ==
LOC: ED 14:50
DX: O99.89 Other specified diseases and conditions complicating pregnancy, childbirth and the puerperium (principal); J06.9 Acute upper respiratory infection, unspecified; J45.21 Mild intermittent asthma with (acute) exacerbation; O99.332 Smoking (tobacco) complicating pregnancy, second trimester; Z3A.14 14 weeks gestation of pregnancy
CPT/HCPCS: 36415; 71045; 80053; 83690; 85025; 94640; 96361; 96374; 99284; A9270

== ENCOUNTER 2019-07-04 08:00 | Outpatient (CLI) | payer MEDICAID ==
[2019-07-04 13:40] LABS: HGB - HEMOGLOBIN 11.8 g/dL (12.0-16.0); MEAN CORPUSCULAR HEMOGLOBIN 25.4 pg (27.0-31.0); MEAN CORPUSCULAR HGB CONC 30.8 g/dL (32.0-36.0); MEAN CORPUSCULAR VOLUME 82.5 fL (81.0-99.0); MEAN PLATELET VOLUME 10.3 fL (7.9-10.8); RED BLOOD COUNT 4.64 10^6/uL (4.20-5.40); RED CELL DISTRIBUTION WIDTH 21.6 % (12.0-15.0); WHITE BLOOD COUNT 7.6 x10^3/uL (4.8-10.8)
[2019-07-04 14:25] LABS: ALBUMIN 3.1 g/dL (3.2-5.5); ALKALINE PHOSPHATASE 78 IU/L (42-121); ALT ALANINE AMINOTRANSFERASE 263 IU/L (10-60); AST ASPARTATE AMINOTRANSFERASE 99 IU/L (10-42); BILIRUBIN,TOTAL 0.3 mg/dL (0.2-1.0)
[2019-07-04 14:29] LABS: BILIRUBIN,DIRECT < 0.1 mg/dL (0.1-0.5)
== END 2019-07-04 23:59 | disposition home or self-care (01) ==
LOC: LAB.WCP 08:00
PROVIDERS: ATTEND Obstetrics & Gynecology
DX: O98.419 Viral hepatitis complicating pregnancy, unspecified trimester (principal); O99.019 Anemia complicating pregnancy, unspecified trimester; B19.20 Unspecified viral hepatitis C without hepatic coma; D64.9 Anemia, unspecified; Z3A.00 Weeks of gestation of pregnancy not specified
CPT/HCPCS: 36415; 80076; 81511; 81599; 85027; 87521; 87522

== ENCOUNTER 2019-07-05 14:25 | Outpatient (CLI) | payer MEDICAID ==
--- NOTE | 2019-07-06 05:26 | Ultrasound Report ---
Reason: SCREENING Procedure Date: 07/05/2019 Accession Number: [id number] / [id number] Procedure: US - OB Detailed Eval CPT Code: Final Report FULL RESULT: EXAM: COMPLETE OBSTETRICAL ULTRASOUND EXAM DATE: 07/05/2019 05:40 PM. CLINICAL HISTORY: anatomic survey. COMPARISON: 04/16/2019. TECHNIQUE: Real-time sonographic evaluation of the fetus performed by the historical society director. Multiple inbound customer service representative static images were saved for review. DATING: Established EGA 19 weeks 0 days with WILY 11/29/2019 based on LMP. EGA 18 weeks 4 days with WILY 12/02/2019 based on the current ultrasound. GENERAL EVALUATION Baptiste . Cardiac activity: 140 bpm. movement: Visualized. Presentation: Variable Placenta: Posterior position. No evidence for previa. Umbilical cord: 3 vessel cord. Central placental cord origin. Amniotic fluid: Subjectively normal. MVP 5.0 cm. BIOMETRY Bi-Parietal Diameter (BPD): 4.27 cm, 18 weeks 6 days Head Circumference (HC): 16.03 cm, 18 weeks 6 days Abdominal Circumference (AC): 13.16 cm, 18 weeks 5 days Femur Length (FL): 2.88 cm, 18 weeks 6 days Estimated Weight: 257 g, 32nd percentile for 19 weeks 0 days. ANATOMY The intracranial structures, profile, face/nose/lips, spine, 4 chamber heart and outflow tracts, stomach, abdominal wall and cord insertion, diaphragm, kidneys, bladder, and extremities were visualized and demonstrate no abnormality. The left leg foot relationship was not clearly visualized, imaging of open hands was limited, and imaging of the choroid plexus was limited. MATERNAL STRUCTURES Uterus: Unremarkable. Cervix: Long and closed. Transabdominal length 4.8 cm. Right ovary/adnexa: Unremarkable. Left ovary/adnexa: Unremarkable. Free fluid: None. IMPRESSION: 1. Baptiste live intrauterine with gestational age 19 weeks 0 days based on LMP. 2. Estimated weight is within expected limits for assigned dating. 3. Normal visualized anatomic survey. Limited evaluation of the left leg foot relationship, hands, and choroid plexus. No anatomic abnormalities are detected at this time. RADIA
== END 2019-07-05 14:26 | disposition home or self-care (01) ==
LOC: DI 14:25
PROVIDERS: ATTEND Obstetrics & Gynecology
DX: Z36.89 Encounter for other specified antenatal screening (principal)
CPT/HCPCS: 76811

== ENCOUNTER 2019-07-13 11:10 | Outpatient (CLI) | payer MEDICAID ==
[2019-07-13 13:19] LABS: BASOPHILS % (AUTO) 0.4 %; EOSINOPHILS # (AUTO) 0.1 10^3/uL (0.0-0.7); EOSINOPHILS % (AUTO) 1.2 %; HGB - HEMOGLOBIN 11.3 g/dL (12.0-16.0); LYMPHOCYTES # (AUTO) 1.9 10^3/uL (1.5-3.5); LYMPHOCYTES % (AUTO) 24.7 %; MEAN CORPUSCULAR HEMOGLOBIN 25.3 pg (27.0-31.0); MEAN CORPUSCULAR HGB CONC 31.2 g/dL (32.0-36.0); MEAN PLATELET VOLUME 9.6 fL (7.9-10.8); MONOCYTES # (AUTO) 0.6 10^3/uL (0.0-1.0); MONOCYTES % (AUTO) 8.2 %; NEUTROPHILS # (AUTO) 5.1 10^3/uL (1.5-6.6); NEUTROPHILS % (AUTO) 65.1 %; PLT - PLATELET COUNT 326 10^3/uL (130-450); RED BLOOD COUNT 4.47 10^6/uL (4.20-5.40); RED CELL DISTRIBUTION WIDTH 20.2 % (12.0-15.0); WHITE BLOOD COUNT 7.8 x10^3/uL (4.8-10.8)
[2019-07-13 13:54] LABS: ALBUMIN 2.9 g/dL (3.2-5.5); ALBUMIN/GLOBULIN RATIO 0.7 (1.0-2.2); BILIRUBIN,TOTAL 0.4 mg/dL (0.2-1.0); CALCIUM 8.6 mg/dL (8.5-10.3); CREATININE 0.4 mg/dL (0.4-1.0); TOTAL PROTEIN 6.9 g/dL (6.7-8.2)
[2019-07-13 18:57] LABS: H. PYLORIS ANTIGEN STL NEGATIVE (Negative)
== END 2019-07-13 23:59 | disposition home or self-care (01) ==
LOC: LAB.WCP 11:10
PROVIDERS: ATTEND Family Medicine
DX: R10.11 Right upper quadrant pain (principal)
CPT/HCPCS: 36415; 80053; 82150; 83690; 85025; 87338; 87493

== ENCOUNTER 2019-07-17 11:50 | Outpatient (CLI) | payer MEDICAID ==
[2019-07-17 13:49] LABS: ALBUMIN/GLOBULIN RATIO 0.7 (1.0-2.2); BILIRUBIN,TOTAL 0.4 mg/dL (0.2-1.0); CALCIUM 8.9 mg/dL (8.5-10.3); CREATININE 0.4 mg/dL (0.4-1.0); TOTAL PROTEIN 7.3 g/dL (6.7-8.2)
== END 2019-07-17 23:59 | disposition home or self-care (01) ==
LOC: LAB.WCP 11:50
PROVIDERS: ATTEND Obstetrics & Gynecology
DX: R10.11 Right upper quadrant pain (principal); R74.0 Nonspecific elevation of levels of transaminase and lactic acid dehydrogenase [LDH]; B19.20 Unspecified viral hepatitis C without hepatic coma
CPT/HCPCS: 36415; 80053

== ENCOUNTER 2019-07-18 07:04 | Outpatient (CLI) | payer MEDICAID ==
--- NOTE | 2019-07-18 13:49 | Ultrasound Report ---
Reason: NONSPEC ELEV OF LEVELS OF TRANSAMNS LACTIC ACID Procedure Date: 07/18/2019 Accession Number: [id number] / [id number] Procedure: US - Abdomen Limited CPT Code: Final Report FULL RESULT: EXAM: ABDOMEN ULTRASOUND LIMITED, RUQ EXAM DATE: 07/18/2019 07:25 AM. CLINICAL HISTORY: Elevated levels of transaminases and lactic acid. Right upper quadrant pain. 20 weeks . COMPARISON: ABDOMEN/PELVIS W/ 02/22/2018 10:59 AM. TECHNIQUE: Real-time scanning was performed with static images obtained. FINDINGS: Liver: The liver parenchyma is mildly echogenic diffusely. No evidence for cirrhosis or mass lesion. The right hepatic lobe measures 21.1 cm. Main portal vein flow: Hepatopetal. Gallbladder: Surgically absent. Biliary System: CBD measures 4 mm. No intrahepatic or extrahepatic ductal dilatation. Other: No ascites. IMPRESSION: 1. Mildly fatty infiltrated and enlarged liver. 2. Status post cholecystectomy as before. RADIA
== END 2019-07-18 07:05 | disposition home or self-care (01) ==
LOC: DI 07:04
PROVIDERS: ATTEND Obstetrics & Gynecology
DX: K76.0 Fatty (change of) liver, not elsewhere classified (principal); Z90.49 Acquired absence of other specified parts of digestive tract
CPT/HCPCS: 76705

== ENCOUNTER 2019-08-06 08:48 | Outpatient (CLI) | payer MEDICAID ==
--- NOTE | 2019-08-06 12:34 | Ultrasound Report ---
Reason: HIGH RISK Procedure Date: 08/06/2019 Accession Number: [id number] / [id number] Procedure: US - OB F/U or Repeat CPT Code: Final Report FULL RESULT: PROCEDURE: OB F/U or Repeat INDICATIONS: HIGH RISK OUTSIDE/PRIOR DATING DATA: Last menstrual period (LMP): 02/22/2019. LMP-based estimated date of delivery (WILY): 11/29/2019. First dating scan (date and location): 04/16/2019. Estimated date of delivery (WILY) from first dating scan: 12/04/2019. TECHNIQUE: Real-time scanning was performed of the fetus, with image documentation and biometric measurements. Endovaginal scanning: Not needed. COMPARISON: 04/16/2019 OB ultrasound, 07/05/2019 OB ultrasound. FINDINGS: General: A single living intrauterine gestation is present. Presentation: Vertex Placenta: Placental position is posterior, without previa. Amniotic fluid index: 16.1 cm, normal for gestational age. heart rate: 157 beats per minute. Maternal cervical canal: 4.4 cm long; normal length is 2.5 cm or more. biometrics: Estimated gestational age from initial scan: 22 weeks 6 days. Other: Normal anatomic structures, previously evaluated in detail 07/05/2019. Normal facial profile, normal cord insertion. IMPRESSION: Single living intrauterine gestation, normal amniotic fluid volume. Normal appearance of the placenta and cord insertion. No anomaly seen. The delivery date is projected to be centered on 12/04/2019. Reviewed by: Jose Burroughs MD on 08/06/2019 12:29 PM PDT Approved by: Jose Burroughs MD on 08/06/2019 12:29 PM PDT Station ID: [id number]
== END 2019-08-06 08:49 | disposition home or self-care (01) ==
LOC: DI 08:48
PROVIDERS: ATTEND Obstetrics & Gynecology
DX: O09.92 Supervision of high risk pregnancy, unspecified, second trimester (principal); Z3A.22 22 weeks gestation of pregnancy
CPT/HCPCS: 76816

== ENCOUNTER 2019-09-10 09:00 | Outpatient (CLI) | payer MEDICAID ==
[2019-09-10 10:29] LABS: HGB - HEMOGLOBIN 12.9 g/dL (12.0-16.0); MEAN CORPUSCULAR HEMOGLOBIN 29.8 pg (27.0-31.0); MEAN CORPUSCULAR HGB CONC 33.8 g/dL (32.0-36.0); MEAN CORPUSCULAR VOLUME 88.2 fL (81.0-99.0); MEAN PLATELET VOLUME 9.9 fL (7.9-10.8); RED BLOOD COUNT 4.33 10^6/uL (4.20-5.40); RED CELL DISTRIBUTION WIDTH 15.7 % (12.0-15.0); WHITE BLOOD COUNT 8.1 x10^3/uL (4.8-10.8)
[2019-09-11 13:30] LABS: HEPATITIS C ANTIBODY REACTIVE (NON-REACTIVE)
== END 2019-09-10 09:01 | disposition home or self-care (01) ==
LOC: LAB 09:00
PROVIDERS: ATTEND Obstetrics & Gynecology
DX: O09.90 Supervision of high risk pregnancy, unspecified, unspecified trimester (principal); B19.20 Unspecified viral hepatitis C without hepatic coma; O98.419 Viral hepatitis complicating pregnancy, unspecified trimester; Z36.89 Encounter for other specified antenatal screening; O26.899 Other specified pregnancy related conditions, unspecified trimester; R74.0 Nonspecific elevation of levels of transaminase and lactic acid dehydrogenase [LDH]; Z3A.00 Weeks of gestation of pregnancy not specified
CPT/HCPCS: 36415; 82950; 85027; 86803; 86850

== ENCOUNTER 2019-09-27 15:01 | Outpatient (CLI) | payer MEDICAID ==
[2019-09-27 15:45] LABS: ALBUMIN 2.9 g/dL (3.2-5.5); ALBUMIN/GLOBULIN RATIO 0.7 (1.0-2.2); BILIRUBIN,DIRECT 0.1 mg/dL (0.1-0.5); BILIRUBIN,TOTAL 0.4 mg/dL (0.2-1.0); CALCIUM 8.5 mg/dL (8.5-10.3); CREATININE 0.4 mg/dL (0.4-1.0); TOTAL PROTEIN 7.3 g/dL (6.7-8.2)
[2019-09-28 16:44] LABS: HEPATITIS A IGM NON-REACTIVE (NON-REACTIVE); HEPATITIS B SURFACE ANTIGEN NON-REACTIVE (NON-REACTIVE); HEPATITIS C ANTIBODY REACTIVE (NON-REACTIVE)
== END 2019-09-27 15:02 | disposition home or self-care (01) ==
LOC: LAB 15:01
PROVIDERS: ATTEND Obstetrics & Gynecology
DX: O09.90 Supervision of high risk pregnancy, unspecified, unspecified trimester (principal); R74.0 Nonspecific elevation of levels of transaminase and lactic acid dehydrogenase [LDH]
CPT/HCPCS: 36415; 80053; 80074; 80076

== ENCOUNTER 2019-11-09 08:00 | Outpatient (CLI) | payer MEDICAID ==
[2019-11-09 19:35] LABS: TRICHOMONAS VAGINALIS DNA NEGATIVE (NEGATIVE)
== END 2019-11-09 23:59 | disposition home or self-care (01) ==
LOC: LAB.R 08:00
PROVIDERS: ATTEND Obstetrics & Gynecology
DX: Z36.85 Encounter for antenatal screening for Streptococcus B (principal)
CPT/HCPCS: 87491; 87591; 87661; 87797